=== PATIENT | male | born 1970 | race Two or more races ===

== ENCOUNTER 2020-02-10 22:16 | Inpatient (IN) | payer SELFPAY ==
[~2020-02-10] VITALS: Ht 165.1 cm; Wt 82.2 kg
--- NOTE | 2020-02-10 22:20 | NUR ---
ED Nurse Note: Pt was brought in by [facility] 29 from home for c/o SOB for last 8 hours. PT sp02 is 81% in RA. oxygen 2L/min given via n/c , sp02 went up to 96%.
[2020-02-10] MEDS ORDERED: Acetaminophen 500mg (ES) tab ORAL ONE (22:30)
--- NOTE | 2020-02-10 22:36 | Emergency Room Report ---
History of Present Illness General Chief Complaint: Dyspnea/Respdistress Source: Patient, EMS Present Illness HPI This a 49-year-old male with no past medical history. He presents with chief plaint of shortness of breath. He said he been sick for the last 2 days but shortness of breath occur about 8 hours ago. Worse with exertion. Worse with inspiration. Cough is nonproductive in nature. Said he has no energy. Denies any fever but has chills. Sick contact in his brother who has the same symptoms but not as bad. Unknown COVID status or exposure. Denies any medical problem. No diabetes, asthma, high blood pressure or cardiac history. Per EMS, he was only 81% on room air. He was also very tachycardic. They placed him on oxygen and brought him here. By the time he got here, he said he felt better with the oxygen. Allergies: Coded Allergies: No Known Allergies (Unverified , 02/10/20) COVID-19 Screening Contact w/high risk pt: No Recent Travel to affected area: No Experienced COVID-19 symptoms?: Yes COVID-19 symptoms experienced: Shortness of Breath Patient History Past Medical History: see triage record, old chart reviewed Past Surgical History: none Pertinent Family History: none Social History: Denies: smoking - Quit 4 years ago Immunizations: other Reviewed Nursing Documentation: PMH: Agreed; PSxH: Agreed Nursing Documentation-PMH Past Medical History: No Stated History Hx Cardiac Problems: No Hx Hypertension: No Hx Pacemaker: No Hx Asthma: No Hx COPD: No Hx Diabetes: No Hx Cancer: No Hx Gastrointestinal Problems: No Hx Dialysis: No History Of Psychiatric Problem: No Hx Neurological Problems: No Hx Cerebrovascular Accident: No Hx Seizures: No Review of Systems Constitutional: Reports: chills Eye: Denies: eye pain, blurred vision ENT: Denies: ear pain, nose congestion, throat swelling Respiratory: Reports: cough, shortness of breath Cardiovascular: Denies: chest pain, palpitations Gastrointestinal: Denies: abdominal pain, diarrhea, nausea, vomiting Musculoskeletal: Denies: back pain, joint pain Skin: Denies: rash Neurological: Denies: headache, numbness Endocrine: Denies: increased thirst, increased urine Hematologic/Lymphatic: Denies: easy bruising All Other Systems: negative except mentioned in HPI Physical Exam Vital Signs Date Time Temp Pulse Resp B/P (MAP) Pulse Ox O2 Delivery O2 Flow Rate FiO2 02/10/20 22:13 97.0 140 22 155/96 (115) 81 Room Air 02/10/20 22:19 15.0 Sp02 EP Interpretation: reviewed, abnormal General Appearance: well appearing, alert, moderate distress Head: normocephalic, atraumatic Eyes: bilateral eye PERRL, bilateral eye EOMI ENT: hearing grossly normal, normal pharynx Neck: full range of motion, supple, no meningismus Respiratory: chest non-tender, decreased breath sounds Cardiovascular #1: regular rate, rhythm, no murmur, tachycardia Gastrointestinal: normal bowel sounds, non tender, no mass, no organomegaly, no bruit, non-distended Musculoskeletal: back normal, normal range of motion, gait/station normal Psychiatric: mood/affect normal Procedures Critical Care Time Critical Care Time Critical care is mandated in this patient who presented with severe hypoxia secondary to suspected COVID pneumonia. Patient require my urgent intervention to attenuate the risks of respiratory collapse which may lead to cardiovascular collapse and . Critical care time is 35 minutes excluding any reportable procedure. Critical care time included evaluation, multiple reevaluation, looking at old charts, interpreting laboratory and diagnostic data, discussing case with patient and family and consultants, and charting. Medical Decision Making Diagnostic Impression: Primary Impression: Suspected 2019 novel coronavirus infection Additional Impressions: Pneumonia Qualified Codes: J18.9 - Pneumonia, unspecified organism Respiratory failure with hypoxia Qualified Codes: J96.01 - Acute respiratory failure with hypoxia New onset type 2 diabetes mellitus ER Course This a 49-year-old male presents with shortness of breath and had severe hypoxia at home. Much improved here in the ER and after oxygenation. Right now he is 98% on 2 L nasal cannula. Heart rate also greatly improved to 93 bpm. Based on the fact that when he admits of a pandemic he has sick contact, is most likely COVID respiratory infection. Patient received fluid here, Combivent MDI, antibiotics, and hydroxychloroquine per protocol. EKG showed no evidence of prolonged QT interval. Because of his hypoxia and mildly elevated d -dimer, I gave him a dose of Lovenox here also. This is to cover for any micro emboli from COVID infection. It appeared that he has new onset diabetes since he has 4+ glucose in the urine and blood glucose is 253. Based on his BMI of 30 , he fits the definition of obesity. Because of his hypoxia, will admit for monitoring and medication. I contacted Dr. Vargas for admission. EKG Diagnostic Results Rate: tachycardiac Rhythm: NSR ST Segments: no acute changes Rhythm Strip Diag. Results EP Interpretation: yes Rate: 94 Rhythm: NSR, no PVC's, no ectopy Chest X-Ray Diagnostic Results Chest X-Ray Diagnostic Results : Chest X-Ray Ordered: Yes # of Views/Limited/Complete: 1 View Indication: Shortness of Breath EP Interpretation: Yes Interpretation: no effusion, no pneumothorax, other - Slight right lower lobe interstitial infiltrate Impression: Other - RLL infiltrate Electronically Signed by: Ramon Nunez MD Last Vital Signs Date Time Temp Pulse Resp B/P (MAP) Pulse Ox O2 Delivery O2 Flow Rate FiO2 02/10/20 22:19 90 Simple Mask 15.0 02/10/20 22:13 97.0 140 22 155/96 (115) Status: improved Disposition: ADMITTED INPATIENT Condition: Serious Ramon Nunez MD February 10, 2020 22:36
[2020-02-10 22:37] VITALS: BP 164/86
--- NOTE | 2020-02-10 22:41 | NUR ---
ED Nurse Note: pt is connected to cardiac monitor technician. pt sp02 is 96 with oxygen on 2L/min via n/c. blood sample collected and sent to lab.
--- NOTE | 2020-02-10 22:44 | NUR ---
ED Nurse Note: x ray being performed at bedside.
[2020-02-10 22:50] LABS: BASOPHILS % (AUTO) 0.6 % (0.0-2.0); EOSINOPHILS % (AUTO) 0.3 % (0.0-3.0); HEMATOCRIT 54.3 % (42.0-52.0); HEMOGLOBIN 17.8 G/DL (14.2-18.0); LYMPHOCYTES % (AUTO) 15.9 % (20.0-45.0); MEAN CORPUSCULAR VOLUME 90 FL (80-99); MONOCYTES % (AUTO) 10.8 % (1.0-10.0); NEUTROPHILS % (AUTO) 72.4 % (45.0-75.0); PLATELET COUNT 150 K/UL (150-450); RED BLOOD COUNT 6.05 M/UL (4.70-6.10); RED CELL DISTRIBUTION WIDTH 11.6 % (11.6-14.8); WHITE BLOOD COUNT 5.4 K/UL (4.8-10.8)
--- NOTE | 2020-02-10 22:55 | Diagnostic Imaging Report ---
EXAM: XR Chest, 1 View CLINICAL HISTORY: COUGH TECHNIQUE: Frontal view of the chest. COMPARISON: No relevant prior studies available. FINDINGS: Lungs: Slight right lung base opacity. Pleural space: No acute findings Heart: No cardiomegaly. Bones/joints: No acute findings. IMPRESSION: Slight right lung base opacity, correlate with aspiration/atelectasis/infectious process.
[2020-02-10 23:05] LABS: INR 0.9 (0.9-1.1)
[2020-02-10 23:07] LABS: ANION GAP 10 mmol/L (5-15); BLOOD UREA NITROGEN 13 mg/dL (7-18); CALCIUM 9.1 MG/DL (8.5-10.1); CARBON DIOXIDE 29 MMOL/L (21-32); CHLORIDE 94 MMOL/L (98-107); POTASSIUM 4.6 MMOL/L (3.5-5.1); SODIUM 133 MMOL/L (136-145)
[2020-02-10 23:15] LABS: APPEARANCE,URINE SLIGHTLY CLOUDY; BILIRUBIN, URINE 1+ (NEGATIVE); GLUCOSE, URINE (UA) 4+ (NEGATIVE); KETONES,URINE 4+ (NEGATIVE); LEUKOCYTE ESTERASE ,URINE 1+ (NEGATIVE); NITRITE,URINE NEGATIVE (NEGATIVE); PH,URINE 6 (4.5-8.0); PROTEIN,URINE 3+ (NEGATIVE); UROBILINOGEN,URINE 4 MG/DL (0.0-1.0)
[2020-02-10] MEDS ORDERED: Enoxaparin 80mg Inj SUBQ ONE (23:15)
[2020-02-10] MEDS ORDERED: cefTRIAXone 1 GM in NS 55 ML IVPB ONE (23:15)
[2020-02-10] MEDS ORDERED: Azithromycin 500 MG in NS 275 ML IV ONE (23:15)
[2020-02-10 23:22] LABS: COLOR,URINE YELLOW
[2020-02-10 23:23] LABS: ALANINE AMINOTRANSFERASE 79 U/L (12-78); ALBUMIN 3.3 G/DL (3.4-5.0); ALBUMIN/GLOBULIN RATIO 0.6 (1.0-2.7); ALKALINE PHOSPHATASE 88 U/L (46-116); ASPARTATE AMINO TRANSFERASE 60 U/L (15-37); BILIRUBIN,TOTAL 1.3 MG/DL (0.2-1.0); FERRITIN 857 NG/ML (8-388)
[2020-02-10 23:25] LABS: BILIRUBIN,DIRECT 0.4 MG/DL (0.0-0.3)
[2020-02-11] VITALS (10 sets, daily range): BP systolic 126–147; BP diastolic 60–81
[2020-02-11] MEDS ORDERED: Albuterol/Ipratropium 3ml neb HHN PRN (00:15)
[2020-02-11] MEDS ORDERED: Miralax 17gm pkt ORAL PRN (00:15)
[2020-02-11] MEDS ORDERED: Morphine Sulfate 2mg/ml Inj(IV/IM USE ONLY) IVP PRN (00:15)
[2020-02-11] MEDS ORDERED: LORazepam Inj 2mg/ml 1ml IV PRN (00:15)
[2020-02-11] MEDS ORDERED: cefTRIAXone 2 GM in NS 55 ML IVPB ONE (00:30)
[2020-02-11] MEDS ORDERED: propofoL 1,000mg/100ml 100 ML IV SCH (02:00)
--- NOTE | 2020-02-11 03:00 | NUR ---
ED Nurse Note: pt requested to hold on to hopson. cupola charger aware.
--- NOTE | 2020-02-11 04:00 | NUR ---
ED Nurse Note: AM LAB BLOOD DRAWN AND SENT TO LAB
--- NOTE | 2020-02-11 07:13 | NUR ---
ED Nurse Note: RECEIVED REPORT FROM RONY RICHARDSON RN, PT RESTING ON BED WITH NO DISTRESS. CALM AND COOPERATIVE. PT IS EATING HIS BREAKFAST. PT AWARE THAT WERE STILL WAITING FOR A BED IN MED SURG UNIT.
--- NOTE | 2020-02-11 07:15 | NUR ---
ED Nurse Note: gave report to Leslie DEVLIN
[2020-02-11] MEDS: Enoxaparin 40mg Inj SUBQ SCH (08:49)
--- NOTE | 2020-02-11 08:55 | NUR ---
ED Nurse Note: Dr Vargas at the bed side. Meds carried out as ordered. Pt states he feels a lot better and less short of breath since last night. AAO x4 and speaks in clear sentences. Bed side commode provided at the bed side.
--- NOTE | 2020-02-11 09:02 | NUR ---
Neeru martinez in EDM - 02/11/20 at 0902 by ABDON ED Note: Dr Vargas at [facility].
[2020-02-11] MEDS ORDERED: Lidocaine 1% MPF 10mg/ml 5ml INJ ONE (10:15)
--- NOTE | 2020-02-11 10:16 | Consultation ---
Rakel Jerry ELECTROSTATIC PAINTER 02/11/20 1016: History of Present Illness General Date patient seen: February 11, 2020 Time patient seen: 08:45 Chief Complaint: Dyspnea/Respdistress Referring physician: dr Vargas Reason for Consultation: PNA, possible COVID infction Present Illness HPI 49 years old male with no stated PMH, presented with complaint of shortness of breath. Patient reported being sick for the last two days with nonproductive cough , however shortness of breath started about 8 to 10 hours prior to presentation to ED. Shortness of breath worse with inspiration. Patient denied fevers but reported chills. Patient denied wheezing and hemoptysis. No chest pain. Patient reported that his brother had similar symptoms , but not as bad. Upon presentation patient was hypoxic 81% on room air, tachycardic with heart rate 140, respiratory rate 22 ,no fever. Patient was placed on supplemental oxygen and pulse oximetry improved. Laboratory work-up revealed no leukocytosis ,stable hemoglobin, hematocrit, evidence of lymphopenia with lymphocyte percentage 15.9. ,ESR 10. Glucose 253. Stable renal parameters. Elevated ferritin 857. LDH 264. CRP 8.9. Elevated LFT: AST 60, ALT 79, total bilirubin 1.3, direct bilirubin 0.4. Troponin negative, pro BNP 88. ECG with ST, no acute ischemic changes, Urinalysis revealed +3 protein ,+4 glucose, +4 ketones, pyuria. Coarse granular casts . Hemoglobin A1c above 16. Chest x-ray demonstrated right lung base opacity , possible pneumonia versus atelectasis. In emergency department patient received empiric antibiotic with ceftriaxone and azithromycin , received 1 dose of Plaquenil. Patient was swabbed for COVID-19. Patient will be admitted to isolation room for further management. Pulmonary consult was requested to assist in management of this patient. Allergies: Coded Allergies: No Known Allergies (Unverified , 02/10/20) Patient History History Provided By: Patient Healthcare decision maker Resuscitation status full code Advanced Directive on File Review of Systems Constitutional: Reports: chills, weakness Eye: Reports: no symptoms ENT: Reports: no symptoms Respiratory: Reports: see HPI Cardiovascular: Reports: no symptoms Genitourinary: Reports: no symptoms Musculoskeletal: Reports: no symptoms Psychiatric: Reports: no symptoms Neurological: Reports: no symptoms Endocrine: Reports: see HPI Hematologic/Lymphatic: Reports: no symptoms Physical Exam General Appearance: no apparent distress, alert Lines, tubes and drains: peripheral HEENT: normocephalic, atraumatic, anicteric, mucous membranes moist, PERRL Neck: non-tender, supple, limited range of motion Respiratory/Chest: chest wall non-tender, no respiratory distress, no accessory muscle use, decreased breath sounds, other - on O2 via NC Cardiovascular/Chest: normal peripheral pulses, normal rate, regular rhythm Abdomen: normal bowel sounds, non tender, soft Extremities: normal range of motion, non-tender, no calf tenderness, normal capillary refill Skin Exam: normal pigmentation, warm/dry Neurologic: meringuer II-XII grossly normal, no motor/sensory deficits, alert, oriented x 3, responsive Musculoskeletal: normal muscle bulk Last 24 Hour Vital Signs Date Time Temp Pulse Resp B/P (MAP) Pulse Ox O2 Delivery O2 Flow Rate FiO2 02/11/20 08:04 73 17 135/73 98 Nasal Cannula 2.0 02/11/20 06:00 99.9 81 20 131/81 98 Nasal Cannula 2.0 02/11/20 04:00 98.8 79 20 126/73 98 Nasal Cannula 2.0 02/10/20 23:21 99.2 02/10/20 22:37 99.6 112 25 164/86 96 Nasal Cannula 2.0 02/10/20 22:20 112 22 Nasal Cannula 2.0 02/10/20 22:19 90 Simple Mask 15.0 02/10/20 22:13 99.7 140 22 155/96 (115) 81 Room Air Intake and Output 02/10/20 02/11/20 19:00 07:00 Intake Total 1550 ml Balance 1550 ml Intake Oral 50 ml IV Total 1500 ml # Voids 1 Laboratory Tests Test 02/10/20 22:30 02/10/20 22:35 Urine Color Yellow Urine Appearance Slightly cloudy Urine pH 6 (4.5-8.0) Urine Specific [place] 1.025 (1.005-1.035) Urine Protein 3+ (NEGATIVE) H Urine Glucose (UA) 4+ (NEGATIVE) H Urine Ketones 4+ (NEGATIVE) H Urine Blood 1+ (NEGATIVE) H Urine Nitrite Negative (NEGATIVE) Urine Bilirubin 1+ (NEGATIVE) H Urine Ictotest Positive (NEGATIVE) Urine Urobilinogen 4 MG/DL (0.0-1.0) H Urine Leukocyte Esterase 1+ (NEGATIVE) H Urine RBC 0-2 /HPF (0 - 0) H Urine WBC 5-10 /HPF (0 - 0) H Urine Squamous Epithelial Cells None /LPF (NONE/OCC) Urine Bacteria Few /HPF (NONE) Urine Coarse Granular Casts 2-4 /LPF (NONE) H White Blood Count 5.4 K/UL (4.8-10.8) Red Blood Count 6.05 M/UL (4.70-6.10) Hemoglobin 17.8 G/DL (14.2-18.0) Hematocrit 54.3 % (42.0-52.0) H Mean Corpuscular Volume 90 FL (80-99) Mean Corpuscular Hemoglobin 29.5 PG (27.0-31.0) Mean Corpuscular Hemoglobin Concent 32.9 G/DL (32.0-36.0) Red Cell Distribution Width 11.6 % (11.6-14.8) Platelet Count 150 K/UL (150-450) Mean Platelet Volume 10.9 FL (6.5-10.1) H Neutrophils (%) (Auto) 72.4 % (45.0-75.0) Lymphocytes (%) (Auto) 15.9 % (20.0-45.0) L Monocytes (%) (Auto) 10.8 % (1.0-10.0) H Eosinophils (%) (Auto) 0.3 % (0.0-3.0) Basophils (%) (Auto) 0.6 % (0.0-2.0) Erythrocyte Sedimentation Rate 10 MM/HR (0-15) Prothrombin Time 10.0 SEC (9.30-11.50) Prothromb Time International Ratio 0.9 (0.9-1.1) Activated Partial Thromboplast Time 28 SEC (23-33) D-Dimer 0.82 mg/L FEU (0.00-0.49) H Sodium Level 133 MMOL/L (136-145) L Potassium Level 4.6 MMOL/L (3.5-5.1) Chloride Level 94 MMOL/L (98-107) L Carbon Dioxide Level 29 MMOL/L (21-32) Anion Gap 10 mmol/L (5-15) Blood Urea Nitrogen 13 mg/dL (7-18) Creatinine 1.0 MG/DL (0.55-1.30) Estimat Glomerular Filtration Rate > 60 mL/min (>60) Glucose Level 253 MG/DL (74-106) H Hemoglobin A1c > 16.0 % (4.3-6.0) H Lactic Acid Level 1.80 mmol/L (0.4-2.0) Calcium Level 9.1 MG/DL (8.5-10.1) Ferritin 857 NG/ML (8-388) H Total Bilirubin 1.3 MG/DL (0.2-1.0) H Direct Bilirubin 0.4 MG/DL (0.0-0.3) H Aspartate Amino Transf (AST/SGOT) 60 U/L (15-37) H Alanine Aminotransferase (ALT/SGPT) 79 U/L (12-78) H Alkaline Phosphatase 88 U/L (46-116) Lactate Dehydrogenase 264 U/L (81-234) H Troponin I 0.000 ng/mL (0.000-0.056) C-Reactive Protein, Quantitative 8.9 mg/dL (0.00-0.90) H Pro-B-Type Natriuretic Peptide 88 pg/mL (0-125) Total Protein 8.6 G/DL (6.4-8.2) H Albumin 3.3 G/DL (3.4-5.0) L Globulin 5.3 g/dL Albumin/Globulin Ratio 0.6 (1.0-2.7) L Microbiology Date/Time Source Procedure Growth Status 02/10/20 22:35 Nasal Nares - Final Complete 02/10/20 22:35 Nasal Nares - Final Complete Height (Feet): 5 Height (Inches): 5.00 Weight (Pounds): 180 Medications Current Medications Medications (Trade) Dose Ordered Sig/Monster Route PRN Reason Start Time Stop Time Status Last Admin Dose Admin Acetaminophen (Tylenol) 650 mg Q4H PRN ORAL TEMP>100.5 02/10/20 23:45 Acetaminophen (Tylenol) 650 mg Q4H PRN RECTAL Mild Pain (Pain Scale 1-3) 02/11/20 00:15 03/12/20 00:14 Albuterol/ Ipratropium (Albuterol/ Ipratropium) 3 ml Q4HRT PRN HHN Shortness of Breath 02/11/20 00:15 02/16/20 00:14 Albuterol/ Ipratropium (Combivent Respimat) 2 puff Q4HR INH 02/11/20 01:00 03/12/20 00:59 02/11/20 08:49 Azithromycin 500 mg/Sodium Chloride 275 ml @ 275 mls/hr ONCE IV 02/11/20 21:00 02/11/20 23:00 Ceftriaxone Sodium 2 gm/ Sodium Chloride 55 ml @ 110 mls/hr ONCE ONCE IVPB 02/11/20 00:30 02/11/20 00:59 UNV Dextrose (Dextrose 50%) 25 ml Q30M PRN IV Hypoglycemia 02/11/20 00:15 05/11/20 00:14 Dextrose (Dextrose 50%) 50 ml Q30M PRN IV Hypoglycemia 02/11/20 00:15 05/11/20 00:14 Enoxaparin Sodium (Lovenox) 40 mg Q24H SUBQ 02/11/20 09:00 05/11/20 08:59 02/11/20 08:49 Lorazepam (Ativan 2mg/ml 1ml) 0.5 mg Q4H PRN IV For Anxiety 02/11/20 00:15 02/18/20 00:14 Morphine Sulfate (Morphine Sulfate) 2 mg EVERY 6 HOURS PRN IVP Moderate Pain (Pain Scale 4-6) 02/11/20 00:15 02/18/20 00:14 Ondansetron HCl (Zofran) 4 mg Q6H PRN IVP Nausea & Vomiting 02/11/20 00:15 03/12/20 00:14 Pantoprazole (Protonix) 40 mg DAILY ORAL 02/11/20 09:00 03/12/20 08:59 02/11/20 08:49 Polyethylene Glycol (Miralax) 17 gm HSPRN PRN ORAL Constipation 02/11/20 00:15 03/12/20 00:14 Assessment/Plan Assessment/Plan: ASSESSMENT Acute hypoxemic respiratory failure Suspected COVID-19 infection Probably PNA New onset of DM with hyperglycemia Sinus tachycardia - resolved Transaminitis PLAN OF CARE admit to isolation room empiric abx , continue Rocephin and Azithromycin ( Doxy on back order, unable to order) ID consult pending, if decided to add Plaquenil, clsoely monitor QT interval we will hold on Plaquenil for now O2 titrate to keep sat above 90% MDI with Albuterol prn ( no HHN while PUI for CoVID) fup with CXR in am DVT prophylaxis trend ferritin, LICENSING REGISTRATION EXAMINER, LDH in few days check IL-6 BS management: BS monitor AC and HS will add long acting Levemir and resistant SSI HgA1c>16, diabetic diet endo eval as per attending discretion ( may need pre meal SA insulin as well) diabetic teaching ( as new onset of DM) check TSH in am trend LFT GI prophayxlis supportive care case discussed and evaluated by supervising physician Willie Upton MD 02/11/20 1245: History of Present Illness General Chief Complaint: Dyspnea/Respdistress Present Illness Allergies: Coded Allergies: No Known Allergies (Unverified , 02/10/20) Assessment/Plan Assessment/Plan: Patient seen and examined with ELECTROSTATIC PAINTER, agree with above A&P as it reflects our joint deliberations. 49 M No PMH p/w SOB and hypoxemia noted to have a RLL infiltrate concerning for CAP vs COVID PNA Supportive care, O2, self proning, empiric CAP/treatment, HFA's, F/U covid, DVT Px Rakel Jerry NP February 11, 2020 10:16 Willie Upton MD February 11, 2020 12:45
[2020-02-11] MEDS ORDERED: Levemir Flexpen SUBQ SCH (11:00)
[2020-02-11] MEDS: NovoLOG Insulin Flexpen SUBQ SCH ×3 (11:49→22:00)
--- NOTE | 2020-02-11 11:55 | NUR ---
ED Nurse Note: Lunch provided to pt.
--- NOTE | 2020-02-11 14:00 | NUR ---
ED Nurse Note: Pt resting on gurney and calm and cooperative. Noted pt consumed lunch. Respirations are even and unlabored. Will continue to closely monitor pt.
--- NOTE | 2020-02-11 18:29 | Consultation ---
DATE OF CONSULTATION: 02/11/2020 CARDIOLOGY CONSULTATION CONSULTING PHYSICIAN: Devyn Mina MD. REFERRING PHYSICIAN: Myla Vargas MD. REASON FOR CONSULTATION: Management of tachycardia. HISTORY OF PRESENT ILLNESS: Patient is a very unfortunate 49-year-old gentleman, who presented to the hospital with 2 days history of progressively worsening shortness of breath, pleuritic chest pain, nonproductive cough, and oxygen desaturation. According to the EMS, the patient's O2 saturation was 81% on room air. Apparently, the patient's brother also had the same symptoms. It is not clear whether he was positive for COVID-19 infection. At the time of arrival to the hospital, the patient was placed on oxygen. He was very tachycardic. Initial vital signs showed blood pressure of 155/96 mmHg and heart rate of 140. The patient was afebrile. PAST MEDICAL HISTORY: None. PAST SURGICAL HISTORY: None. FAMILY HISTORY: No premature coronary artery disease in first-degree relatives. SOCIAL HISTORY: History of tobacco use, quit about 40 years ago. No drinking or drugs. REVIEW OF SYSTEMS: A 12-system review done essentially negative except what was mentioned in the history of present illness. MEDICATIONS: List of medications, no medication. PHYSICAL EXAMINATION: VITAL SIGNS: Blood pressure was 155/96 mmHg, heart rate of 140, respirations of 22, temperature 97.0 degrees Fahrenheit, O2 saturation 81% on room air. GENERAL: Patient is a very unfortunate 49-year-old gentleman, in moderate distress. HEENT: Atraumatic and normocephalic. Anicteric. Pupils are equal, round, and reactive to light and accommodation. Extraocular muscles intact. NECK: JVP less than 5 cm. No carotid bruit. Carotid upstrokes 2+ bilaterally. CARDIOVASCULAR: Normal S1, S2. Tachycardic. No murmurs, gallops, or rubs. LUNGS: Bibasilar crackles. ABDOMEN: Soft, nontender, and nondistended. No hepatosplenomegaly. Positive bowel sounds. EXTREMITIES: No evidence of edema, clubbing, or cyanosis. Chest x-ray shows cardiomegaly with increased interstitial markings consistent with interstitial edema. LABORATORY FINDINGS: WBC 5.4, hemoglobin of 17.8, hematocrit of 54.3, platelet count 150. There is presence of lymphopenia. Chemistry, sodium 133, potassium is 4.6, chloride 94, bicarbonate 29, BUN of 13, creatinine 1.0, glucose 253. AST, ALT 16 and 79 respectively. Troponin I level 0. C-reactive protein 8.9. D-dimer is 0.8. INR is 0.9. PTT of 28. ASSESSMENT AND PLAN: Patient is a very unfortunate 49-year-old gentleman, seen in Cardiology consultation. 1. Sinus tachycardia. This is most likely secondary to hypoxemia. I do not wish to use AV dwayne agent at this point. I agree with aggressive treatment of suspected COVID-19 infection. Other conservative measures including providing normal saline 75 mL per hour. 2. Hyperglycemia with no history of diabetes mellitus. 3. Hyponatremia, most likely due to needs to be corrected for elevated blood sugar levels. 4. Elevated D-dimer in this patient could be secondary to microvascular thrombus formation ? Lovenox treatment. 5. Acute respiratory failure. I would consider arterial blood gas and Pulmonary consultation and followup. I would like to thank, Dr. Vargas, for the courtesy of this consultation. Devyn Mina M.D. DR: JO JOB#: [id number] CC:
--- NOTE | 2020-02-11 19:07 | NUR ---
HAND-OFF: Report given to Justin Anand RN.
--- NOTE | 2020-02-11 19:30 | NUR ---
ED Nurse Note: received patient from mallory nguyen. upon visual inspection, patient resting in bed with no acute distress. ao4. Attached to monitor; vss. Aware of pending admission. will continue to monitor.
--- NOTE | 2020-02-11 20:20 | NUR ---
TRANSFER TO FLOOR: Patient transferred to [place] [id number] as ordered, per pernell jennings. Report given to karlie tejada. endorsed patient condition. Patient transported to [facility] belongings and admission packet sent with patient. Droplet precautions observed. will continue to monitor.
--- NOTE | 2020-02-11 20:30 | NUR ---
NURSE NOTES: Pt. received from Justin Anand RN. Pt. AAOx4, on NC 2L, breathing even and unlabored, no complaints of pain. IV access right AC 20g, intact and patent, saline locked. VS stable, belongings checked and list signed; pt. refused to send hopson away for safe keeping, in pt. possession. Pt. oriented to room and unit, call light use, pt. verbalized understanding. Will follow up with primary MD for additional admission orders. Bed is low and locked, side rails x2 up, and call light in reach. Will continue with plan of care.
[2020-02-11] MEDS ORDERED: Azithromycin 500 MG in NS 275 ML IV SCH (21:00)
[2020-02-11] MEDS ORDERED: cefTRIAXone 2 GM in NS 55 ML IVPB SCH (21:00)
--- NOTE | 2020-02-11 21:00 | NUR ---
NURSE NOTES: Dr. Vargas aware pt. now present on med-surg unit, no new admission orders at this time. Will continue to monitor.
--- NOTE | 2020-02-11 21:30 | History and Physical Report ---
DATE OF ADMISSION: 02/11/2020 SOURCE OF INFORMATION: Patient and EMR. HISTORY OF PRESENT ILLNESS: The patient is a 49-year-old male presented with shortness of breath for the last 3 to 5 days. The patient denies any nausea or vomiting. Denies any fever or chills. REVIEW OF SYSTEMS: All 12 elements of review of systems reviewed. Pertinent positive and negative as above. ALLERGIES: NKDA. SOCIAL HISTORY: The patient denies history of illicit drug abuse, smoking, or alcohol abuse. The patient is single. PAST MEDICAL AND SURGICAL HISTORY: Appendectomy and diabetes. MEDICATIONS: Current hospital medications including ceftriaxone and azithromycin. PHYSICAL EXAMINATION: VITAL SIGNS: Blood pressure 155/96, temperature 99.7, respiratory rate 18, pulse rate 140. HEAD AND NECK: Atraumatic and normocephalic. CHEST: Clear to auscultation. HEART: S1, S2. Regular rate and rhythm. ABDOMEN: Soft. No organomegaly. MUSCULOSKELETAL: No gross focal deficits. NEUROLOGICAL: Patient is awake, alert and oriented x3. LABORATORY DATA: Lab dated February 09 shows hemoglobin of 17.8, sodium 133, BUN 13, AST of 60. Hemoglobin A1c of more than 16. Blood sugar 253. Urinalysis positive for the 10 wbc's and 1+ blood. D-dimer is 0.8. IMAGING: Chest x-ray dated February 09 shows right lung opacity. ASSESSMENT AND PLAN: 1. Community-acquired pneumonia, possibilities of COVID-19 cannot be excluded. 2. Diabetes type 2, uncontrolled. 3. Abnormal LFT. 4. Hyponatremia. 5. UTI. 6. GI and DVT prophylaxis. PLAN OF CARE: Started empiric antibiotic treatment. We will check the hepatitis panel. We will resume the breathing treatments and the empiric antibiotic treatment pending cultures. Time of this dictation does not reflect the actual time of encounter. Myla Vargas M.D. DR: Ryann JOB#: [id number] CC:
[2020-02-12] VITALS: BP 140/79
[2020-02-12 04:00] VITALS: BP 145/79
[2020-02-12] MEDS: NovoLOG Insulin Flexpen SUBQ SCH ×4 (06:30→22:05)
[2020-02-12 07:04] LABS: ALANINE AMINOTRANSFERASE 60 U/L (12-78); ALBUMIN 2.5 G/DL (3.4-5.0); ALBUMIN/GLOBULIN RATIO 0.6 (1.0-2.7); ALKALINE PHOSPHATASE 71 U/L (46-116); ANION GAP 7 mmol/L (5-15); ASPARTATE AMINO TRANSFERASE 38 U/L (15-37); BILIRUBIN,TOTAL 0.8 MG/DL (0.2-1.0); BLOOD UREA NITROGEN 5 mg/dL (7-18); CALCIUM 8.2 MG/DL (8.5-10.1); CARBON DIOXIDE 29 MMOL/L (21-32); CHLORIDE 100 MMOL/L (98-107); CREATININE 0.7 MG/DL (0.55-1.30); POTASSIUM 3.8 MMOL/L (3.5-5.1); SODIUM 136 MMOL/L (136-145)
[2020-02-12 07:16] LABS: HEMATOCRIT 43.6 % (42.0-52.0); MEAN CORPUSCULAR VOLUME 84 FL (80-99); PLATELET COUNT 165 K/UL (150-450); RED BLOOD COUNT 5.19 M/UL (4.70-6.10); RED CELL DISTRIBUTION WIDTH 9.9 % (11.6-14.8); WHITE BLOOD COUNT 6.7 K/UL (4.8-10.8)
--- NOTE | 2020-02-12 07:50 | NUR ---
HAND-OFF: Report given to QUITA Bustamante.
[2020-02-12 08:00] VITALS: BP 149/79
--- NOTE | 2020-02-12 08:54 | Pulmonology Progress Note ---
Rakel Jerry CAGER OPERATOR 02/12/20 0854: Subjective Allergies: Coded Allergies: No Known Allergies (Unverified , 02/10/20) Subjective low grade fevers resolved on o2 via NC, no signs of resp distress COVID result pending, in isolation ST resolved , likely was due to fever BS stable with insulin therapy Objective Last 24 Hour Vital Signs Date Time Temp Pulse Resp B/P (MAP) Pulse Ox O2 Delivery O2 Flow Rate FiO2 02/12/20 08:40 Nasal Cannula 2.0 02/12/20 08:00 97.5 90 21 149/79 (102) 95 02/12/20 04:00 97.5 90 21 145/79 (101) 95 02/12/20 00:53 Nasal Cannula 2.0 02/12/20 00:00 97.9 87 20 140/79 (99) 97 02/11/20 20:30 97.8 89 18 147/78 (101) 92 02/11/20 20:27 98.7 83 15 134/75 96 Nasal Cannula 2.0 02/11/20 20:00 98.7 83 15 134/75 96 Nasal Cannula 2.0 02/11/20 17:20 98.7 83 15 142/75 96 Nasal Cannula 2.0 02/11/20 15:15 79 16 139/76 99 Nasal Cannula 2.0 02/11/20 13:27 99.0 86 17 135/60 96 Nasal Cannula 2.0 02/11/20 12:05 74 15 128/80 99 Nasal Cannula 2.0 02/11/20 10:10 99.3 85 16 128/70 99 Nasal Cannula 2.0 Intake and Output 02/11/20 02/12/20 19:00 07:00 Intake Total 360 ml Balance 360 ml Other 360 ml # Voids 2 Objective General Appearance: no apparent distress, alert Lines, tubes and drains: peripheral HEENT: normocephalic, atraumatic, anicteric, mucous membranes moist, PERRL Neck: non-tender, supple, limited range of motion Respiratory/Chest: chest wall non-tender, no respiratory distress, no accessory muscle use, decreased breath sounds, on O2 via NC Cardiovascular/Chest: normal peripheral pulses, normal rate, regular rhythm Abdomen: normal bowel sounds, non tender, soft Extremities: normal range of motion, non-tender, no calf tenderness, normal capillary refill Skin Exam: normal pigmentation, warm/dry Neurologic: conference assistant II-XII grossly normal, no motor/sensory deficits, alert, oriented x 3, responsive Musculoskeletal: normal muscle bulk Microbiology Date/Time Source Procedure Growth Status 02/10/20 22:35 Nasal Nares - Final Complete 02/10/20 22:35 Nasal Nares - Final Complete Laboratory Tests 02/11/20 14:20: Hepatitis A IgM Antibody Negative, Hepatitis B Surface Antigen Negative, Hepatitis B Core IgM Antibody Negative, Hepatitis C Antibody <0.1 02/12/20 06:00: White Blood Count 6.7, Red Blood Count 5.19, Hemoglobin 16.0, Hematocrit 43.6, Mean Corpuscular Volume 84, Mean Corpuscular Hemoglobin 30.7, Mean Corpuscular Hemoglobin Concent 36.6H, Red Cell Distribution Width 9.9L, Platelet Count 165, Mean Platelet Volume 9.2, Neutrophils (%) (Auto) , Lymphocytes (%) (Auto) , Monocytes (%) (Auto) , Eosinophils (%) (Auto) , Basophils (%) (Auto) , Neutrophils % (Manual) [Pending], Lymphocytes % (Manual) [Pending], Platelet Estimate [Pending], Platelet Morphology [Pending], Sodium Level 136, Potassium Level 3.8, Chloride Level 100, Carbon Dioxide Level 29, Anion Gap 7, Blood Urea Nitrogen 5L, Creatinine 0.7, Estimat Glomerular Filtration Rate > 60, Glucose Level 144#H, Hemoglobin A1c 9.2H, Calcium Level 8.2L, Total Bilirubin 0.8, Aspartate Amino Transf (AST/SGOT) 38H, Alanine Aminotransferase (ALT/SGPT) 60, Alkaline Phosphatase 71, Total Protein 6.9, Albumin 2.5L, Globulin 4.4, Albumin/ Globulin Ratio 0.6L, Interleukin 6 (IL-6) [Pending], Thyroid Stimulating Hormone (TSH) 1.235 Current Medications Medications (Trade) Dose Ordered Sig/Monster Route PRN Reason Start Time Stop Time Status Last Admin Dose Admin Acetaminophen (Tylenol) 650 mg Q4H PRN RECTAL Mild Pain (Pain Scale 1-3) 02/11/20 00:15 03/12/20 00:14 Albuterol/ Ipratropium (Combivent Respimat) 1 puff Q4H PRN INH Shortness of Breath 02/12/20 06:15 05/11/20 09:59 Azithromycin 500 mg/Sodium Chloride 275 ml @ 275 mls/hr Q24H IV 02/12/20 21:00 02/17/20 20:59 Ceftriaxone Sodium 1 gm/ Dextrose 55 ml @ 110 mls/hr Q24H IVPB 02/12/20 22:00 02/19/20 21:59 Dextrose (Dextrose 50%) 25 ml Q30M PRN IV Hypoglycemia 02/11/20 00:15 05/11/20 00:14 Dextrose (Dextrose 50%) 50 ml Q30M PRN IV Hypoglycemia 02/11/20 00:15 05/11/20 00:14 Enoxaparin Sodium (Lovenox) 40 mg Q24H SUBQ 02/11/20 09:00 05/11/20 08:59 02/11/20 08:49 Insulin Aspart (NovoLOG) BEFORE MEALS AND HS SUBQ 02/11/20 11:30 05/11/20 11:29 02/11/20 17:34 Insulin Detemir (Levemir) 20 units DAILY SUBQ 02/12/20 09:00 05/11/20 10:59 Lorazepam (Ativan 2mg/ml 1ml) 0.5 mg Q4H PRN IV For Anxiety 02/11/20 00:15 02/18/20 00:14 Morphine Sulfate (Morphine Sulfate) 2 mg EVERY 6 HOURS PRN IVP Moderate Pain (Pain Scale 4-6) 02/11/20 00:15 02/18/20 00:14 Ondansetron HCl (Zofran) 4 mg Q6H PRN IVP Nausea & Vomiting 02/11/20 00:15 03/12/20 00:14 Pantoprazole (Protonix) 40 mg DAILY ORAL 02/11/20 09:00 03/12/20 08:59 02/11/20 08:49 Polyethylene Glycol (Miralax) 17 gm HSPRN PRN ORAL Constipation 02/11/20 00:15 03/12/20 00:14 Assessment/Plan Assessment/Plan ASSESSMENT Acute hypoxemic respiratory failure Suspected COVID-19 infection CAR vs CoVID PNA New onset of DM with hyperglycemia Sinus tachycardia - resolved Transaminitis PLAN OF CARE MS floor isolation room empiric abx , continue Rocephin and Azithromycin ( Doxy on back order, unable to order) ID consult pending, if decided to add Plaquenil, closely monitor QT interval we will hold on Plaquenil for now O2 titrate to keep sat above 90% MDI with Albuterol prn ( no HHN while PUI for CoVID) fup with CXR in am self prone position as tolerating DVT prophylaxis trend ferritin, CRP, LDH in few days check [id number] BS management: BS monitor : AC and HS on long acting Levemir and resistant SSI HgA1c>16,repeated 9.2 diabetic diet endo eval as per attending discretion diabetic teaching ( as new onset of DM) check TSH WNL trend LFT-trendgin down hep panel NGT GI prophayxlis supportive care case discussed and evaluated by supervising physician Willie Upton MD 02/12/20 1731: Subjective Allergies: Coded Allergies: No Known Allergies (Unverified , 02/10/20) Assessment/Plan Assessment/Plan Patient seen and examined with CAGER OPERATOR. Agree with above A&P as it reflects our joint deliberations. COVID still pending, on CAP therapy. AFVSS with stable O2 needs. Cards recs noted. D-dimer only minimally elevated, can continue PPx dose of LMWH for now, will F/U Dupex and TTE. Rakel Jerry NP February 12, 2020 08:54 Willie Upton MD February 12, 2020 17:31
[2020-02-12] MEDS: Enoxaparin 40mg Inj SUBQ SCH (09:14)
[2020-02-12] MEDS: Levemir Flexpen SUBQ SCH (10:43)
--- NOTE | 2020-02-12 10:58 | NUR ---
CASE MANAGEMENT: INITIAL REVIEW 49YR OLD MALE FROM HOME CC: DYSPNEA/ RESPIRATORY DISTRESS/ RECORDED OXYGEN SAT 81% ON RA SI:PNA . SUSPECTED COVID-19 EXPOSURE . RESPIRATORY FAILURE WITH HYPOXIA . UTI 99.6 140 22 155/96 81% ON RA D.DIMER 0.82 NA+ 133 BG 253 FERR 857 AST/ALT 60/79 Hbg A1C> 16.0 LDH 264 IS:IVF NS BOLUS X2 IV ZITHROMAX X1 IV ROCEPHIN X1 PLAQUENIL PO X1 TYLENOL PO X1 COMBIVENT RESPIMAT INH X3 LOVENOX SQ X1 CHEST X-RAY- Slight right lung base opacity, correlate with aspiration/atelectasis/infectious process. INFLUENZA- BLOOD CULTURES- \: 4E MED SURG UNIT DCP: HOME WHEN STABLE PLAN: CONT BREATHING TREATMENTS COVID-19 R/O CASE MANAGEMENT: REVIEW 02/11/20 SI:PNA . SUSPECTED COVID-19 EXPOSURE . RESPIRATORY FAILURE WITH HYPOXIA . UTI 99.9 81 20 131/81 98 % ON 2L NC IS:IV ZITHROMAX X1 IV ROCEPHIN X1 LEVEMIR SQ QD \: 4E MED SURG UNIT DCP: HOME WHEN STABLE PLAN: CONT BREATHING TREATMENTS COVID-19 R/O CASE MANAGEMENT: REVIEW 02/12/20 SI:PNA . SUSPECTED COVID-19 EXPOSURE . RESPIRATORY FAILURE WITH HYPOXIA . UTI 97.5 90 21 149/79 95% ON 2L NC IS:IV ZITHROMAX QD IV ROCEPHIN QD LEVEMIR SQ QD LOVENOX SQ Q24HR PROTONIX PO QD \: 4E MED SURG UNIT DCP: HOME WHEN STABLE PLAN: CONT BREATHING TREATMENTS COVID-19 R/O BLOOD CULTURES -PENDING
[2020-02-12 12:00] VITALS: BP 137/75
--- NOTE | 2020-02-12 12:23 | General Progress Note ---
Assessment/Plan Assessment/Plan: S: I am ok O: seems comfortable. no chest pain. minimal sob. .PHYSICAL EXAMINATION:HEAD AND NECK: Atraumatic and normocephalic. CHEST: Clear to auscultation.HEART: S1, S2. Regular rate and rhythm. ABDOMEN: Soft. No organomegaly.MUSCULOSKELETAL: No gross focal deficits. NEUROLOGICAL: Patient is awake, alert and oriented x3. LABORATORY DATA: Lab dated February 11 reviewed IMAGING: Chest x-ray dated February 09 shows right lung opacity. ASSESSMENT AND PLAN: 1. Community-acquired pneumonia, possibilities of COVID-19 cannot be excluded. 2. Diabetes type 2, uncontrolled. 3. Abnormal LFT. 4. Hyponatremia. 5. UTI. 6. GI and DVT prophylaxis. PLAN OF CARE: current management Subjective Allergies: Coded Allergies: No Known Allergies (Unverified , 02/10/20) Objective Last 24 Hour Vital Signs Date Time Temp Pulse Resp B/P (MAP) Pulse Ox O2 Delivery O2 Flow Rate FiO2 02/12/20 08:40 Nasal Cannula 2.0 02/12/20 08:00 97.5 90 21 149/79 (102) 95 02/12/20 04:00 97.5 90 21 145/79 (101) 95 02/12/20 00:53 Nasal Cannula 2.0 02/12/20 00:00 97.9 87 20 140/79 (99) 97 02/11/20 20:30 97.8 89 18 147/78 (101) 92 02/11/20 20:27 98.7 83 15 134/75 96 Nasal Cannula 2.0 02/11/20 20:00 98.7 83 15 134/75 96 Nasal Cannula 2.0 02/11/20 17:20 98.7 83 15 142/75 96 Nasal Cannula 2.0 02/11/20 15:15 79 16 139/76 99 Nasal Cannula 2.0 02/11/20 13:27 99.0 86 17 135/60 96 Nasal Cannula 2.0 Intake and Output 02/11/20 02/12/20 19:00 07:00 Intake Total 360 ml Balance 360 ml Other 360 ml # Voids 2 Laboratory Tests 02/11/20 14:20: Hepatitis A IgM Antibody Negative, Hepatitis B Surface Antigen Negative, Hepatitis B Core IgM Antibody Negative, Hepatitis C Antibody <0.1 02/12/20 06:00: White Blood Count 6.7, Red Blood Count 5.19, Hemoglobin 16.0, Hematocrit 43.6, Mean Corpuscular Volume 84, Mean Corpuscular Hemoglobin 30.7, Mean Corpuscular Hemoglobin Concent 36.6H, Red Cell Distribution Width 9.9L, Platelet Count 165, Mean Platelet Volume 9.2, Neutrophils (%) (Auto) , Lymphocytes (%) (Auto) , Monocytes (%) (Auto) , Eosinophils (%) (Auto) , Basophils (%) (Auto) , Differential Total Cells Counted 100, Neutrophils % (Manual) 79H, Lymphocytes % (Manual) 15L, Monocytes % (Manual) 5, Eosinophils % (Manual) 1, Basophils % ( Manual) 0, Band Neutrophils 0, Platelet Estimate Adequate, Platelet Morphology Normal, Red Blood Cell Morphology Normal, Sodium Level 136, Potassium Level 3.8 , Chloride Level 100, Carbon Dioxide Level 29, Anion Gap 7, Blood Urea Nitrogen 5L, Creatinine 0.7, Estimat Glomerular Filtration Rate > 60, Glucose Level 144#H , Hemoglobin A1c 9.2H, Calcium Level 8.2L, Total Bilirubin 0.8, Aspartate Amino Transf (AST/SGOT) 38H, Alanine Aminotransferase (ALT/SGPT) 60, Alkaline Phosphatase 71, Total Protein 6.9, Albumin 2.5L, Globulin 4.4, Albumin/Globulin Ratio 0.6L, Interleukin 6 (IL-6) [Pending], Thyroid Stimulating Hormone (TSH) 1.235 Height (Feet): 5 Height (Inches): 5.00 Weight (Pounds): 180 Myla Vargas MD February 12, 2020 12:23
--- NOTE | 2020-02-12 14:16 | Diagnostic Imaging Report ---
Indication: Shortness of breath Technique: One view of the chest Comparison: 02/10/2020 Findings: There is interim development of left retrocardiac infiltrate and increased right basilar infiltrate. No definite effusions. The heart size is upper limits of normal. Impression: New/increased bilateral basilar infiltrates, since previous exam of 2 days earlier
[2020-02-12 16:00] VITALS: BP 130/75
--- NOTE | 2020-02-12 19:05 | NUR ---
NURSE NOTES: Received report from QUITA Bustamante. AAOx4, on NC 2L, ambulatory. IV intact and patent. No acute distress noted. No labored breathing. Bed is low and locked, side rails x2 up, alarm on, and call light in reach. Will continue to monitor.
[2020-02-12 20:00] VITALS: BP 140/81
--- NOTE | 2020-02-12 21:07 | NUR ---
NURSE NOTES: Received result from the lab that pt has covid positive. Left message Dr. Hill. Addendum: 02/12/20 at 2242 by PHILIP PEREYRA RN RN NURSE NOTES: Called Dr. Upton. No new order received.
[2020-02-12] MEDS: Azithromycin 500 MG in NS 275 ML IV SCH (22:02)
--- NOTE | 2020-02-12 23:33 | Cardiology Progress Note ---
Assessment/Plan Assessment/Plan 1. Sinus tachycardia, due to hypoxemia, continue IV hydration, not wishing to use AV dwayne agent at this point. 2. Hyperglycemia with no history of diabetes mellitus. 3. Hyponatremia. 4. Elevated D-dimer in this patient could be secondary to microvascular thrombus formation ? Lovenox treatment. 5. Acute respiratory failure. Subjective Subjective No cardiac events noted. Objective Last 24 Hour Vital Signs Date Time Temp Pulse Resp B/P (MAP) Pulse Ox O2 Delivery O2 Flow Rate FiO2 02/12/20 21:00 Nasal Cannula 2.0 02/12/20 20:00 100.2 92 24 140/81 (100) 94 02/12/20 16:00 98.8 91 21 130/75 (93) 95 02/12/20 12:00 97.2 89 21 137/75 (95) 95 02/12/20 08:40 Nasal Cannula 2.0 02/12/20 08:00 97.5 90 21 149/79 (102) 95 02/12/20 04:00 97.5 90 21 145/79 (101) 95 02/12/20 00:53 Nasal Cannula 2.0 02/12/20 00:00 97.9 87 20 140/79 (99) 97 Intake and Output 02/11/20 02/12/20 19:00 07:00 Intake Total 360 ml Balance 360 ml Other 360 ml # Voids 2 Laboratory Tests Test 02/12/20 06:00 White Blood Count 6.7 K/UL (4.8-10.8) Red Blood Count 5.19 M/UL (4.70-6.10) Hemoglobin 16.0 G/DL (14.2-18.0) Hematocrit 43.6 % (42.0-52.0) Mean Corpuscular Volume 84 FL (80-99) Mean Corpuscular Hemoglobin 30.7 PG (27.0-31.0) Mean Corpuscular Hemoglobin Concent 36.6 G/DL (32.0-36.0) H Red Cell Distribution Width 9.9 % (11.6-14.8) L Platelet Count 165 K/UL (150-450) Mean Platelet Volume 9.2 FL (6.5-10.1) Neutrophils (%) (Auto) % (45.0-75.0) Lymphocytes (%) (Auto) % (20.0-45.0) Monocytes (%) (Auto) % (1.0-10.0) Eosinophils (%) (Auto) % (0.0-3.0) Basophils (%) (Auto) % (0.0-2.0) Differential Total Cells Counted 100 Neutrophils % (Manual) 79 % (45-75) H Lymphocytes % (Manual) 15 % (20-45) L Monocytes % (Manual) 5 % (1-10) Eosinophils % (Manual) 1 % (0-3) Basophils % (Manual) 0 % (0-2) Band Neutrophils 0 % (0-8) Platelet Estimate Adequate Platelet Morphology Normal Red Blood Cell Morphology Normal Sodium Level 136 MMOL/L (136-145) Potassium Level 3.8 MMOL/L (3.5-5.1) Chloride Level 100 MMOL/L (98-107) Carbon Dioxide Level 29 MMOL/L (21-32) Anion Gap 7 mmol/L (5-15) Blood Urea Nitrogen 5 mg/dL (7-18) L Creatinine 0.7 MG/DL (0.55-1.30) Estimat Glomerular Filtration Rate > 60 mL/min (>60) Glucose Level 144 MG/DL (74-106) #H Hemoglobin A1c 9.2 % (4.3-6.0) H Calcium Level 8.2 MG/DL (8.5-10.1) L Total Bilirubin 0.8 MG/DL (0.2-1.0) Aspartate Amino Transf (AST/SGOT) 38 U/L (15-37) H Alanine Aminotransferase (ALT/SGPT) 60 U/L (12-78) Alkaline Phosphatase 71 U/L (46-116) Total Protein 6.9 G/DL (6.4-8.2) Albumin 2.5 G/DL (3.4-5.0) L Globulin 4.4 g/dL Albumin/Globulin Ratio 0.6 (1.0-2.7) L Interleukin 6 (IL-6) Pending Thyroid Stimulating Hormone (TSH) 1.235 uiU/mL (0.358-3.740) Microbiology Date/Time Source Procedure Growth Status 02/10/20 22:35 Blood Blood Culture - Preliminary NO GROWTH AFTER 24 HOURS Resulted 02/10/20 22:30 Blood Blood Culture - Preliminary NO GROWTH AFTER 24 HOURS Resulted 02/10/20 22:35 Nasal Nares - Final Complete 02/10/20 22:35 Nasal Nares - Final Complete Objective HEENT: Atraumatic and normocephalic. Anicteric. Pupils are equal, round, and reactive to light and accommodation. Extraocular muscles intact. NECK: JVP less than 5 cm. No carotid bruit. Carotid upstrokes 2+ bilaterally. CARDIOVASCULAR: Normal S1, S2. Tachycardic. No murmurs, gallops, or rubs. LUNGS: Bibasilar crackles. ABDOMEN: Soft, nontender, and nondistended. No hepatosplenomegaly. Positive bowel sounds. EXTREMITIES: No evidence of edema, clubbing, or cyanosis. Devyn Mina MD February 12, 2020 23:33
[2020-02-12] MEDS: cefTRIAXone 1gm/D5W 55ml IVPB SCH ×2 (23:57)
[2020-02-12] MEDS: Acetaminophen 650 MG SUPP RECTAL PRN (23:58)
[2020-02-13] VITALS: BP 132/77
[2020-02-13 04:00] VITALS: BP 145/79
[2020-02-13] MEDS: Acetaminophen 650 MG SUPP RECTAL PRN (04:28)
[2020-02-13] MEDS: NovoLOG Insulin Flexpen SUBQ SCH ×4 (05:46→20:55)
[2020-02-13 06:39] LABS: BASOPHILS % (AUTO) 0.9 % (0.0-2.0); EOSINOPHILS % (AUTO) 2.1 % (0.0-3.0); HEMATOCRIT 45.3 % (42.0-52.0); HEMOGLOBIN 16.2 G/DL (14.2-18.0); LYMPHOCYTES % (AUTO) 14.9 % (20.0-45.0); MEAN CORPUSCULAR VOLUME 85 FL (80-99); MONOCYTES % (AUTO) 8.6 % (1.0-10.0); NEUTROPHILS % (AUTO) 73.5 % (45.0-75.0); PLATELET COUNT 196 K/UL (150-450); RED BLOOD COUNT 5.32 M/UL (4.70-6.10); RED CELL DISTRIBUTION WIDTH 10.2 % (11.6-14.8); WHITE BLOOD COUNT 7.6 K/UL (4.8-10.8)
--- NOTE | 2020-02-13 07:38 | NUR ---
HAND-OFF: Report given to QUITA Carrion.
--- NOTE | 2020-02-13 07:41 | NUR ---
NURSE NOTES: Report received from Charlee DEVLIN. Patient seen on rounds, AxOx4, nurse reports fever overnight Tmax 100.3, on 2lpm via NC tolerating well, no SOB noted. PIV on right AC patent and intact. Isolation precautions maintained. Bed low and locked, siderails up x2, call light within reach, instructed to call nurse for assistance, will continue to monitor.
[2020-02-13 08:00] VITALS: BP 152/74
[2020-02-13] MEDS: Enoxaparin 40mg Inj SUBQ SCH (08:31)
[2020-02-13] MEDS: Levemir Flexpen SUBQ SCH (08:33)
--- NOTE | 2020-02-13 11:37 | General Progress Note ---
Assessment/Plan Status: stable Assessment/Plan: S: I am ok O: seems comfortable. no chest pain. minimal sob. .PHYSICAL EXAMINATION:HEAD AND NECK: Atraumatic and normocephalic. CHEST: Clear to auscultation.HEART: S1, S2. Regular rate and rhythm. ABDOMEN: Soft. No organomegaly.MUSCULOSKELETAL: No gross focal deficits. NEUROLOGICAL: Patient is awake, alert and oriented x3. LABORATORY DATA: Lab dated February 12 reviewed ASSESSMENT AND PLAN: 1. COVID 19- pneumonia, 2. Diabetes type 2, uncontrolled. 3. Abnormal LFT. 4. Hyponatremia. 5. UTI. 6. GI and DVT prophylaxis. PLAN OF CARE: current management Subjective Allergies: Coded Allergies: No Known Allergies (Unverified , 02/10/20) Objective Last 24 Hour Vital Signs Date Time Temp Pulse Resp B/P (MAP) Pulse Ox O2 Delivery O2 Flow Rate FiO2 02/13/20 09:00 Nasal Cannula 2.0 02/13/20 08:00 98.1 95 20 152/74 (100) 90 02/13/20 04:58 99.1 02/13/20 04:00 100.0 85 22 145/79 (101) 93 02/13/20 00:00 100.2 90 21 132/77 (95) 96 02/12/20 21:00 Nasal Cannula 2.0 02/12/20 20:00 100.2 92 24 140/81 (100) 94 02/12/20 16:00 98.8 91 21 130/75 (93) 95 02/12/20 12:00 97.2 89 21 137/75 (95) 95 Intake and Output 02/12/20 02/13/20 19:00 07:00 Intake Total 940 ml 400 ml Balance 940 ml 400 ml Intake Oral 940 ml Other 400 ml # Voids 3 2 Laboratory Tests 02/13/20 05:00: White Blood Count 7.6, Red Blood Count 5.32, Hemoglobin 16.2, Hematocrit 45.3, Mean Corpuscular Volume 85, Mean Corpuscular Hemoglobin 30.4, Mean Corpuscular Hemoglobin Concent 35.7, Red Cell Distribution Width 10.2L, Platelet Count 196, Mean Platelet Volume 8.0, Neutrophils (%) (Auto) 73.5, Lymphocytes (%) (Auto) 14.9L, Monocytes (%) (Auto) 8.6, Eosinophils (%) (Auto) 2.1, Basophils (%) (Auto ) 0.9 Height (Feet): 5 Height (Inches): 5.00 Weight (Pounds): 181 Myla Vargas MD February 13, 2020 11:37
[2020-02-13 12:00] VITALS: BP 138/82
--- NOTE | 2020-02-13 14:45 | Pulmonology Progress Note ---
Rakel Jerry RESIDENTIAL WORKER 02/13/20 1445: Subjective Allergies: Coded Allergies: No Known Allergies (Unverified , 02/10/20) Subjective no leukocytosis, + lymphopenia + fevers on O2 via NC, no signs of resp distress COVID02/09 detected, remains in isolation ST resolved , likely was due to fever BS stable with insulin therapy ( Levemir dose increased) Objective Last 24 Hour Vital Signs Date Time Temp Pulse Resp B/P (MAP) Pulse Ox O2 Delivery O2 Flow Rate FiO2 02/13/20 12:00 100.0 90 20 138/82 (100) 95 02/13/20 09:00 Nasal Cannula 2.0 02/13/20 08:00 98.1 95 20 152/74 (100) 90 02/13/20 04:58 99.1 02/13/20 04:00 100.0 85 22 145/79 (101) 93 02/13/20 00:00 100.2 90 21 132/77 (95) 96 02/12/20 21:00 Nasal Cannula 2.0 02/12/20 20:00 100.2 92 24 140/81 (100) 94 02/12/20 16:00 98.8 91 21 130/75 (93) 95 Intake and Output 02/12/20 02/13/20 19:00 07:00 Intake Total 940 ml 400 ml Balance 940 ml 400 ml Intake Oral 940 ml Other 400 ml # Voids 3 2 Objective General Appearance: no apparent distress, alert Lines, tubes and drains: peripheral HEENT: normocephalic, atraumatic, anicteric, mucous membranes moist, PERRL Neck: non-tender, supple, limited range of motion Respiratory/Chest: chest wall non-tender, no respiratory distress, no accessory muscle use, decreased breath sounds, on O2 via NC Cardiovascular/Chest: normal peripheral pulses, normal rate, regular rhythm Abdomen: normal bowel sounds, non tender, soft Extremities: normal range of motion, non-tender, no calf tenderness, normal capillary refill Skin Exam: normal pigmentation, warm/dry Neurologic: echo vascular tech II-XII grossly normal, no motor/sensory deficits, alert, oriented x 3, responsive Musculoskeletal: normal muscle bulk Microbiology Date/Time Source Procedure Growth Status 02/10/20 22:35 Blood Blood Culture - Preliminary NO GROWTH AFTER 48 HOURS Resulted 02/10/20 22:30 Blood Blood Culture - Preliminary NO GROWTH AFTER 48 HOURS Resulted 02/10/20 22:35 Nasal Nares - Final Complete 02/10/20 22:35 Nasal Nares - Final Complete 02/10/20 22:35 Nasopharynx Coronavirus COVID-19 PCR ([facility]) - Final Complete Laboratory Tests 02/13/20 05:00: White Blood Count 7.6, Red Blood Count 5.32, Hemoglobin 16.2, Hematocrit 45.3, Mean Corpuscular Volume 85, Mean Corpuscular Hemoglobin 30.4, Mean Corpuscular Hemoglobin Concent 35.7, Red Cell Distribution Width 10.2L, Platelet Count 196, Mean Platelet Volume 8.0, Neutrophils (%) (Auto) 73.5, Lymphocytes (%) (Auto) 14.9L, Monocytes (%) (Auto) 8.6, Eosinophils (%) (Auto) 2.1, Basophils (%) (Auto ) 0.9 Current Medications Medications (Trade) Dose Ordered Sig/Monster Route PRN Reason Start Time Stop Time Status Last Admin Dose Admin Acetaminophen (Tylenol) 650 mg Q4H PRN RECTAL Mild Pain (Pain Scale 1-3) 02/11/20 00:15 03/12/20 00:14 02/13/20 04:28 Albuterol/ Ipratropium (Combivent Respimat) 1 puff Q4H PRN INH Shortness of Breath 02/12/20 06:15 05/11/20 09:59 Azithromycin 500 mg/Sodium Chloride 275 ml @ 275 mls/hr Q24H IV 02/12/20 21:00 02/17/20 20:59 02/12/20 22:02 Ceftriaxone Sodium 1 gm/ Dextrose 55 ml @ 110 mls/hr Q24H IVPB 02/12/20 22:00 02/19/20 21:59 02/12/20 23:57 Dextrose (Dextrose 50%) 25 ml Q30M PRN IV Hypoglycemia 02/11/20 00:15 05/11/20 00:14 Dextrose (Dextrose 50%) 50 ml Q30M PRN IV Hypoglycemia 02/11/20 00:15 05/11/20 00:14 Enoxaparin Sodium (Lovenox) 40 mg Q24H SUBQ 02/11/20 09:00 8/9/20 08:59 02/13/20 08:31 Insulin Aspart (NovoLOG) BEFORE MEALS AND HS SUBQ 02/11/20 11:30 05/11/20 11:29 02/13/20 12:56 Insulin Detemir (Levemir) 20 units DAILY SUBQ 02/12/20 09:00 05/11/20 10:59 02/13/20 08:33 Lorazepam (Ativan 2mg/ml 1ml) 0.5 mg Q4H PRN IV For Anxiety 02/11/20 00:15 02/18/20 00:14 Morphine Sulfate (Morphine Sulfate) 2 mg EVERY 6 HOURS PRN IVP Moderate Pain (Pain Scale 4-6) 02/11/20 00:15 02/18/20 00:14 Ondansetron HCl (Zofran) 4 mg Q6H PRN IVP Nausea & Vomiting 02/11/20 00:15 03/12/20 00:14 Pantoprazole (Protonix) 40 mg DAILY ORAL 02/11/20 09:00 03/12/20 08:59 02/13/20 08:30 Polyethylene Glycol (Miralax) 17 gm HSPRN PRN ORAL Constipation 02/11/20 00:15 03/12/20 00:14 Assessment/Plan Assessment/Plan ASSESSMENT Acute hypoxemic respiratory failure Confirmed COVID-19 infection PNA due to COVID 19 infection New onset of DM with hyperglycemia Sinus tachycardia - resolved Transaminitis PLAN OF CARE MS floor isolation room empiric abx , continue Rocephin and Azithromycin ( Doxy on back order, unable to order) ID consult per primary discretion , hold on Plaquenil for now BCX 02/09 NGTD influenza swab 02/09 NGT SARS CoV-2 by PCR 02/09 detected , remains in isolation O2 titrate to keep sat above 90% MDI with Albuterol prn ( no HHN while PUI for CoVID) CXR 02/11 -New/increased bilateral basilar infiltrates, since previous exam of 2 days earlier self prone position as tolerating fup with CXR DVT prophylaxis minimally elevated D dimer venous Duplex BLE ECHO with pEF 60% and RVSP of 23 trend ferritin, CRP, LDH in few days [id number] BS management: BS monitor : AC and HS on long acting Levemir ( dose increased by attending) and resistant SSI HgA1c>16,repeated 9.2 diabetic diet endo eval as per attending discretion diabetic teaching ( as new onset of DM) check TSH WNL trend LFT-trending down hep panel NGT GI prophayxlis supportive care case discussed and evaluated by supervising physician Willie Upton MD 02/13/20 1738: Subjective Allergies: Coded Allergies: No Known Allergies (Unverified , 02/10/20) Assessment/Plan Assessment/Plan Patient seen and examined with RESIDENTIAL WORKER. Agree with above A&P as it reflects our joint deliberations. COVID came back + . Supportive care, HFA's, O2, Abx, LMWH, OOB Rakel Jerry NP February 13, 2020 14:45 Willie Upton MD February 13, 2020 17:38
[2020-02-13 16:00] VITALS: BP 135/79
--- NOTE | 2020-02-13 19:27 | NUR ---
HAND-OFF: Report given to Dinorah DEVLIN. Endorsed patient's cellphone being charged at nurse's station with charging cable.
--- NOTE | 2020-02-13 20:00 | NUR ---
NURSE NOTES: Received patient awake, alert, verbal, no SOB, resting in bed comfortably without complaints.
[2020-02-13 20:17] VITALS: BP 141/80
[2020-02-13] MEDS: Azithromycin 500 MG in NS 275 ML IV SCH (20:29)
[2020-02-13] MEDS: cefTRIAXone 1gm/D5W 55ml IVPB SCH ×2 (22:13)
--- NOTE | 2020-02-13 22:20 | Cardiology Progress Note ---
Assessment/Plan Assessment/Plan 1. Sinus tachycardia, due to hypoxemia, continue IV hydration, not wishing to use AV dwayne agent at this point. Echo reveals normal LV function with LVEF at 60%. 2. Hyperglycemia with no history of diabetes mellitus. 3. Hyponatremia, resolved. 4. Elevated D-dimer in this patient could be secondary to microvascular thrombus formation ? Lovenox treatment. 5. Acute respiratory failure. 6. New onset DM. Subjective Subjective No cardiac events noted. Objective Last 24 Hour Vital Signs Date Time Temp Pulse Resp B/P (MAP) Pulse Ox O2 Delivery O2 Flow Rate FiO2 02/13/20 20:17 98.6 82 22 141/80 (100) 95 02/13/20 20:08 Nasal Cannula 2.0 02/13/20 17:38 98.2 02/13/20 16:00 100.8 93 20 135/79 (97) 95 02/13/20 12:00 100.0 90 20 138/82 (100) 95 02/13/20 09:00 Nasal Cannula 2.0 02/13/20 08:00 98.1 95 20 152/74 (100) 90 02/13/20 04:58 99.1 02/13/20 04:00 100.0 85 22 145/79 (101) 93 02/13/20 00:00 100.2 90 21 132/77 (95) 96 Intake and Output 02/12/20 02/13/20 19:00 07:00 Intake Total 940 ml 400 ml Balance 940 ml 400 ml Intake Oral 940 ml Other 400 ml # Voids 3 2 2D Echo: LVEF 60%, Grade I LVDD, RVSP 23 mmHg Laboratory Tests Test 02/13/20 05:00 White Blood Count 7.6 K/UL (4.8-10.8) Red Blood Count 5.32 M/UL (4.70-6.10) Hemoglobin 16.2 G/DL (14.2-18.0) Hematocrit 45.3 % (42.0-52.0) Mean Corpuscular Volume 85 FL (80-99) Mean Corpuscular Hemoglobin 30.4 PG (27.0-31.0) Mean Corpuscular Hemoglobin Concent 35.7 G/DL (32.0-36.0) Red Cell Distribution Width 10.2 % (11.6-14.8) L Platelet Count 196 K/UL (150-450) Mean Platelet Volume 8.0 FL (6.5-10.1) Neutrophils (%) (Auto) 73.5 % (45.0-75.0) Lymphocytes (%) (Auto) 14.9 % (20.0-45.0) L Monocytes (%) (Auto) 8.6 % (1.0-10.0) Eosinophils (%) (Auto) 2.1 % (0.0-3.0) Basophils (%) (Auto) 0.9 % (0.0-2.0) Microbiology Date/Time Source Procedure Growth Status 02/10/20 22:35 Blood Blood Culture - Preliminary NO GROWTH AFTER 48 HOURS Resulted 02/10/20 22:30 Blood Blood Culture - Preliminary NO GROWTH AFTER 48 HOURS Resulted 02/10/20 22:35 Nasal Nares - Final Complete 02/10/20 22:35 Nasal Nares - Final Complete 02/10/20 22:35 Nasopharynx Coronavirus COVID-19 PCR ([facility]) - Final Complete Objective HEENT: Atraumatic and normocephalic. Anicteric. Pupils are equal, round, and reactive to light and accommodation. Extraocular muscles intact. NECK: JVP less than 5 cm. No carotid bruit. Carotid upstrokes 2+ bilaterally. CARDIOVASCULAR: Normal S1, S2. Tachycardic. No murmurs, gallops, or rubs. LUNGS: Bibasilar crackles. ABDOMEN: Soft, nontender, and nondistended. No hepatosplenomegaly. Positive bowel sounds. EXTREMITIES: No evidence of edema, clubbing, or cyanosis. Devyn Mina MD February 13, 2020 22:20
[2020-02-14] VITALS: BP 115/70
[2020-02-14 04:00] VITALS: BP 133/78
[2020-02-14] MEDS: NovoLOG Insulin Flexpen SUBQ SCH ×4 (05:49→21:07)
--- NOTE | 2020-02-14 07:14 | NUR ---
HAND-OFF: Report given to QUITA Bashir.
[2020-02-14 07:22] LABS: BASOPHILS % (AUTO) 0.9 % (0.0-2.0); EOSINOPHILS % (AUTO) 2.6 % (0.0-3.0); HEMATOCRIT 40.3 % (42.0-52.0); HEMOGLOBIN 14.6 G/DL (14.2-18.0); LYMPHOCYTES % (AUTO) 14.7 % (20.0-45.0); MEAN CORPUSCULAR VOLUME 84 FL (80-99); MONOCYTES % (AUTO) 11.4 % (1.0-10.0); NEUTROPHILS % (AUTO) 70.5 % (45.0-75.0); PLATELET COUNT 232 K/UL (150-450); RED CELL DISTRIBUTION WIDTH 9.7 % (11.6-14.8); WHITE BLOOD COUNT 6.4 K/UL (4.8-10.8)
[2020-02-14 08:00] VITALS: BP 156/82
--- NOTE | 2020-02-14 08:18 | Pulmonology Progress Note ---
Rakel Jerry CLIENT SERVICE PROFESSIONAL 02/14/20 0818: Subjective Allergies: Coded Allergies: No Known Allergies (Unverified , 02/10/20) Subjective no leukocytosis, + lymphopenia + fevers on O2 via NC, no signs of resp distress COVID02/09 detected, remains in isolation ST resolved , likely was due to fever BS stable with insulin therapy ( Levemir dose increased) Objective Last 24 Hour Vital Signs Date Time Temp Pulse Resp B/P (MAP) Pulse Ox O2 Delivery O2 Flow Rate FiO2 02/14/20 04:00 99.6 90 22 133/78 (96) 92 02/14/20 00:00 99.5 86 20 115/70 (85) 96 02/13/20 20:17 98.6 82 22 141/80 (100) 95 02/13/20 20:08 Nasal Cannula 2.0 02/13/20 17:38 98.2 02/13/20 16:00 100.8 93 20 135/79 (97) 95 02/13/20 12:00 100.0 90 20 138/82 (100) 95 02/13/20 09:00 Nasal Cannula 2.0 Intake and Output 02/13/20 02/14/20 19:00 07:00 Intake Total 690 ml Balance 690 ml IV Total 330 ml Other 360 ml # Voids 3 2 Objective General Appearance: no apparent distress, alert Lines, tubes and drains: peripheral HEENT: normocephalic, atraumatic, anicteric, mucous membranes moist, PERRL Neck: non-tender, supple, limited range of motion Respiratory/Chest: chest wall non-tender, no respiratory distress, no accessory muscle use, decreased breath sounds, on O2 via NC Cardiovascular/Chest: normal peripheral pulses, normal rate, regular rhythm Abdomen: normal bowel sounds, non tender, soft Extremities: normal range of motion, non-tender, no calf tenderness, normal capillary refill Skin Exam: normal pigmentation, warm/dry Neurologic: drain tiler II-XII grossly normal, no motor/sensory deficits, alert, oriented x 3, responsive Musculoskeletal: normal muscle bulk Laboratory Tests 02/14/20 04:00: White Blood Count 6.4, Red Blood Count 4.80, Hemoglobin 14.6, Hematocrit 40.3L, Mean Corpuscular Volume 84, Mean Corpuscular Hemoglobin 30.4, Mean Corpuscular Hemoglobin Concent 36.2H, Red Cell Distribution Width 9.7L, Platelet Count 232, Mean Platelet Volume 8.4, Neutrophils (%) (Auto) 70.5, Lymphocytes (%) (Auto) 14.7L, Monocytes (%) (Auto) 11.4H, Eosinophils (%) (Auto) 2.6, Basophils (%) ( Auto) 0.9, Lactate Dehydrogenase 259H, C-Reactive Protein, Quantitative 11.3H Current Medications Medications (Trade) Dose Ordered Sig/Monster Route PRN Reason Start Time Stop Time Status Last Admin Dose Admin Acetaminophen (Tylenol) 500 mg Q4H PRN ORAL Mild Pain (Pain Scale 1-3) 02/14/20 08:15 03/15/20 08:14 UNV Acetaminophen (Tylenol) 650 mg Q4H PRN RECTAL Mild Pain (Pain Scale 1-3) 02/11/20 00:15 03/12/20 00:14 02/13/20 04:28 Acetaminophen (Tylenol) 650 mg Q6H PRN ORAL Temp >100.5 02/13/20 16:45 03/14/20 16:44 02/13/20 17:08 Albuterol/ Ipratropium (Combivent Respimat) 1 puff Q4H PRN INH Shortness of Breath 02/12/20 06:15 05/11/20 09:59 Azithromycin 500 mg/Sodium Chloride 275 ml @ 275 mls/hr Q24H IV 02/12/20 21:00 02/17/20 20:59 02/13/20 20:29 Ceftriaxone Sodium 1 gm/ Dextrose 55 ml @ 110 mls/hr Q24H IVPB 02/12/20 22:00 02/19/20 21:59 02/13/20 22:13 Dextrose (Dextrose 50%) 25 ml Q30M PRN IV Hypoglycemia 02/11/20 00:15 05/11/20 00:14 Dextrose (Dextrose 50%) 50 ml Q30M PRN IV Hypoglycemia 02/11/20 00:15 05/11/20 00:14 Enoxaparin Sodium (Lovenox) 40 mg Q24H SUBQ 02/11/20 09:00 05/11/20 08:59 02/13/20 08:31 Insulin Aspart (NovoLOG) BEFORE MEALS AND HS SUBQ 02/11/20 11:30 05/11/20 11:29 02/14/20 05:49 Insulin Detemir (Levemir) 20 units DAILY SUBQ 02/12/20 09:00 05/11/20 10:59 02/13/20 08:33 Lorazepam (Ativan 2mg/ml 1ml) 0.5 mg Q4H PRN IV For Anxiety 02/11/20 00:15 02/18/20 00:14 Morphine Sulfate (Morphine Sulfate) 2 mg EVERY 6 HOURS PRN IVP Moderate Pain (Pain Scale 4-6) 02/11/20 00:15 02/18/20 00:14 Ondansetron HCl (Zofran) 4 mg Q6H PRN IVP Nausea & Vomiting 02/11/20 00:15 03/12/20 00:14 Pantoprazole (Protonix) 40 mg DAILY ORAL 02/11/20 09:00 03/12/20 08:59 02/13/20 08:30 Polyethylene Glycol (Miralax) 17 gm HSPRN PRN ORAL Constipation 02/11/20 00:15 03/12/20 00:14 Assessment/Plan Assessment/Plan ASSESSMENT Acute hypoxemic respiratory failure Confirmed COVID-19 infection PNA due to COVID 19 infection New onset of DM with hyperglycemia Sinus tachycardia - resolved Transaminitis PLAN OF CARE MS floor isolation room empiric abx , continue Rocephin and Azithromycin ( Doxy on back order, unable to order) ID consult per primary discretion , hold on Plaquenil for now BCX 02/09 NGTD influenza swab 02/09 NGT SARS CoV-2 by PCR 02/09 detected , remains in isolation O2 titrate to keep sat above 90% MDI with Albuterol prn ( no HHN while PUI for CoVID) CXR 02/11 -New/increased bilateral basilar infiltrates, since previous exam of 2 days earlier self prone position as tolerating fup with CXR in few days DVT prophylaxis minimally elevated D dimer venous Duplex BLE ECHO with pEF 60% and RVSP of 23 trend ferritin, CRP -11.3 ( trending up), LDH 259 ( about the same) [id number] BS management: BS monitor : AC and HS on long acting Levemir ( dose increased by attending) and resistant SSI HgA1c>16,repeated 9.2 diabetic diet endo eval as per attending discretion diabetic teaching ( as new onset of DM) check TSH WNL trend LFT-trending down hep panel NGT GI prophayxlis supportive care case discussed and evaluated by supervising physician Willie Upton MD 02/14/20 1126: Subjective Allergies: Coded Allergies: No Known Allergies (Unverified , 02/10/20) Assessment/Plan Assessment/Plan Patient seen and examined with CLIENT SERVICE PROFESSIONAL. Agree with above A&P as it reflects our joint deliberations. Rakel Jerry NP February 14, 2020 08:18 Willie Upton MD February 14, 2020 11:26
[2020-02-14] MEDS: Enoxaparin 40mg Inj SUBQ SCH (08:26)
[2020-02-14] MEDS: Levemir Flexpen SUBQ SCH (08:27)
[2020-02-14] MEDS ORDERED: Acetaminophen 500mg (ES) tab ORAL PRN (09:41)
[2020-02-14] MEDS ORDERED: Acetaminophen 650 MG SUPP RECTAL PRN (09:45)
--- NOTE | 2020-02-14 11:34 | General Progress Note ---
Assessment/Plan Status: stable Assessment/Plan: S: I am ok O: seems comfortable. no chest pain. minimal sob. .PHYSICAL EXAMINATION:HEAD AND NECK: Atraumatic and normocephalic. CHEST: Clear to auscultation.HEART: S1, S2. Regular rate and rhythm. ABDOMEN: Soft. No organomegaly.MUSCULOSKELETAL: No gross focal deficits. NEUROLOGICAL: Patient is awake, alert and oriented x3. LABORATORY DATA: Lab dated February 12 reviewed ASSESSMENT AND PLAN: 1. COVID 19- pneumonia, 2. Diabetes type 2, uncontrolled. 3. Abnormal LFT. 4. Hyponatremia. 5. UTI. 6. GI and DVT prophylaxis. PLAN OF CARE: current management Labs pending Subjective Allergies: Coded Allergies: No Known Allergies (Unverified , 02/10/20) Objective Last 24 Hour Vital Signs Date Time Temp Pulse Resp B/P (MAP) Pulse Ox O2 Delivery O2 Flow Rate FiO2 02/14/20 09:00 Nasal Cannula 2.0 02/14/20 08:53 98.8 02/14/20 08:00 98.8 99 24 156/82 (106) 91 02/14/20 04:00 99.6 90 22 133/78 (96) 92 02/14/20 00:00 99.5 86 20 115/70 (85) 96 02/13/20 20:17 98.6 82 22 141/80 (100) 95 02/13/20 20:08 Nasal Cannula 2.0 02/13/20 16:00 100.8 93 20 135/79 (97) 95 02/13/20 12:00 100.0 90 20 138/82 (100) 95 Intake and Output 02/13/20 02/14/20 19:00 07:00 Intake Total 690 ml Balance 690 ml IV Total 330 ml Other 360 ml # Voids 3 2 Laboratory Tests 02/14/20 04:00: White Blood Count 6.4, Red Blood Count 4.80, Hemoglobin 14.6, Hematocrit 40.3L, Mean Corpuscular Volume 84, Mean Corpuscular Hemoglobin 30.4, Mean Corpuscular Hemoglobin Concent 36.2H, Red Cell Distribution Width 9.7L, Platelet Count 232, Mean Platelet Volume 8.4, Neutrophils (%) (Auto) 70.5, Lymphocytes (%) (Auto) 14.7L, Monocytes (%) (Auto) 11.4H, Eosinophils (%) (Auto) 2.6, Basophils (%) ( Auto) 0.9, Lactate Dehydrogenase 259H, C-Reactive Protein, Quantitative 11.3H Height (Feet): 5 Height (Inches): 5.00 Weight (Pounds): 181 Myla Vargas MD February 14, 2020 11:34
--- NOTE | 2020-02-14 11:48 | NUR ---
MANAGER STAFFINGHEEL CEMENTER SI: PNA,COVID 19 + T. 99.6 HR 90 RR 20 B/P 156/72 2L NC O2 SAT @ 98% LACTATE D 259 IS: ROCEPHIN IV ZITHROMAX IV LOVENOX SUBC ISOLATION MED/SURG STATUS
[2020-02-14 12:00] VITALS: BP 137/74
[2020-02-14 16:00] VITALS: BP 134/75
--- NOTE | 2020-02-14 18:58 | NUR ---
HAND-OFF: Report given to QUITA Copeland.
--- NOTE | 2020-02-14 20:00 | NUR ---
NURSE NOTES: Received patient awake, alert, verbal, no SOB, resting in bed, comfortable.
[2020-02-14 20:07] VITALS: BP 148/87
[2020-02-14] MEDS: Azithromycin 500 MG in NS 275 ML IV SCH (21:06)
[2020-02-14] MEDS: cefTRIAXone 1gm/D5W 55ml IVPB SCH ×2 (22:36)
[2020-02-15] VITALS: BP 131/72
[2020-02-15 04:00] VITALS: BP 148/86
[2020-02-15] MEDS: NovoLOG Insulin Flexpen SUBQ SCH ×4 (06:30→21:40)
[2020-02-15 07:08] LABS: ALANINE AMINOTRANSFERASE 97 U/L (12-78); ALBUMIN 2.4 G/DL (3.4-5.0); ALBUMIN/GLOBULIN RATIO 0.5 (1.0-2.7); ALKALINE PHOSPHATASE 94 U/L (46-116); ANION GAP 11 mmol/L (5-15); ASPARTATE AMINO TRANSFERASE 51 U/L (15-37); BILIRUBIN,TOTAL 0.7 MG/DL (0.2-1.0); BLOOD UREA NITROGEN 9 mg/dL (7-18); CALCIUM 8.6 MG/DL (8.5-10.1); CARBON DIOXIDE 29 MMOL/L (21-32); CHLORIDE 101 MMOL/L (98-107); CREATININE 0.7 MG/DL (0.55-1.30); POTASSIUM 3.6 MMOL/L (3.5-5.1); SODIUM 141 MMOL/L (136-145)
--- NOTE | 2020-02-15 07:15 | NUR ---
HAND-OFF: Report given to Louie Givens RN.
--- NOTE | 2020-02-15 07:15 | NUR ---
NURSE NOTES: Received patient in bed. Awake, A/O x4. Patient denies pain at this time. On NC 2 lpm. IV in the Right AC, site intact. Bed low and locked, Call light within reach.
[2020-02-15 07:34] LABS: EOSINOPHILS % (AUTO) 4.2 % (0.0-3.0); HEMATOCRIT 43.4 % (42.0-52.0); HEMOGLOBIN 15.6 G/DL (14.2-18.0); LYMPHOCYTES % (AUTO) 14.5 % (20.0-45.0); MEAN CORPUSCULAR VOLUME 85 FL (80-99); MONOCYTES % (AUTO) 11.9 % (1.0-10.0); NEUTROPHILS % (AUTO) 68.4 % (45.0-75.0); PLATELET COUNT 290 K/UL (150-450); RED CELL DISTRIBUTION WIDTH 9.9 % (11.6-14.8)
[2020-02-15 08:00] VITALS: BP 140/80
--- NOTE | 2020-02-15 08:59 | Pulmonology Progress Note ---
Rakel Jerry HEATING WORKER 02/15/20 0859: Subjective Allergies: Coded Allergies: No Known Allergies (Unverified , 02/10/20) Subjective no leukocytosis, + lymphopenia still night fevers on O2 via NC, no signs of resp distress COVID02/09 detected, remains in isolation ST resolved , likely was due to fever BS stable with insulin therapy ( Levemir dose increased) Objective Last 24 Hour Vital Signs Date Time Temp Pulse Resp B/P (MAP) Pulse Ox O2 Delivery O2 Flow Rate FiO2 02/15/20 04:00 98.4 95 20 148/86 (106) 91 02/15/20 00:00 99.1 83 18 131/72 (91) 94 02/14/20 21:38 99.0 02/14/20 20:12 Nasal Cannula 2.0 02/14/20 20:07 100.4 102 20 148/87 (107) 99 02/14/20 16:00 99.3 94 24 134/75 (94) 93 02/14/20 12:00 99.5 87 23 137/74 (95) 93 02/14/20 09:00 Nasal Cannula 2.0 Intake and Output 02/14/20 02/15/20 19:00 07:00 Intake Total 400 ml 690 ml Balance 400 ml 690 ml Intake Oral 400 ml IV Total 330 ml Other 360 ml # Voids 3 2 Objective General Appearance: no apparent distress, alert, awake, responsive Lines, tubes and drains: peripheral HEENT: normocephalic, atraumatic, anicteric, mucous membranes moist, PERRL Neck: non-tender, supple, limited range of motion Respiratory/Chest: chest wall non-tender, no respiratory distress, no accessory muscle use, decreased breath sounds, on O2 via NC Cardiovascular/Chest: normal peripheral pulses, normal rate, regular rhythm Abdomen: normal bowel sounds, non tender, soft Extremities: normal range of motion, non-tender, no calf tenderness, normal capillary refill Skin Exam: normal pigmentation, warm/dry Neurologic: head soft sugar operator II-XII grossly normal, no motor/sensory deficits, alert, oriented x 3, responsive Musculoskeletal: normal muscle bulk Laboratory Tests 02/15/20 05:00: White Blood Count 7.0, Red Blood Count 5.10, Hemoglobin 15.6, Hematocrit 43.4, Mean Corpuscular Volume 85, Mean Corpuscular Hemoglobin 30.6, Mean Corpuscular Hemoglobin Concent 35.9, Red Cell Distribution Width 9.9L, Platelet Count 290, Mean Platelet Volume 8.3, Neutrophils (%) (Auto) 68.4, Lymphocytes (%) (Auto) 14.5L, Monocytes (%) (Auto) 11.9H, Eosinophils (%) (Auto) 4.2H, Basophils (%) ( Auto) 1.0, Sodium Level 141, Potassium Level 3.6, Chloride Level 101, Carbon Dioxide Level 29, Anion Gap 11, Blood Urea Nitrogen 9, Creatinine 0.7, Estimat Glomerular Filtration Rate > 60, Glucose Level 107H, Calcium Level 8.6, Total Bilirubin 0.7, Aspartate Amino Transf (AST/SGOT) 51H, Alanine Aminotransferase ( ALT/SGPT) 97H, Alkaline Phosphatase 94, Total Protein 7.3, Albumin 2.4L, Globulin 4.9, Albumin/Globulin Ratio 0.5L Current Medications Medications (Trade) Dose Ordered Sig/Monster Route PRN Reason Start Time Stop Time Status Last Admin Dose Admin Acetaminophen (Tylenol) 500 mg Q4H PRN ORAL Mild Pain (Pain Scale 1-3) 02/14/20 09:41 03/15/20 09:40 Acetaminophen (Tylenol) 650 mg Q4H PRN RECTAL Mild Pain (Pain Scale 1-3) 02/14/20 09:45 03/12/20 00:14 Acetaminophen (Tylenol) 650 mg Q6H PRN ORAL Temp >100.5 02/13/20 16:45 03/14/20 16:44 02/14/20 21:08 Albuterol/ Ipratropium (Combivent Respimat) 1 puff Q4H PRN INH Shortness of Breath 02/12/20 06:15 05/11/20 09:59 Azithromycin 500 mg/Sodium Chloride 275 ml @ 275 mls/hr Q24H IV 02/12/20 21:00 02/17/20 20:59 02/14/20 21:06 Ceftriaxone Sodium 1 gm/ Dextrose 55 ml @ 110 mls/hr Q24H IVPB 02/12/20 22:00 02/19/20 21:59 02/14/20 22:36 Dextrose (Dextrose 50%) 25 ml Q30M PRN IV Hypoglycemia 02/11/20 00:15 05/11/20 00:14 Dextrose (Dextrose 50%) 50 ml Q30M PRN IV Hypoglycemia 02/11/20 00:15 05/11/20 00:14 Enoxaparin Sodium (Lovenox) 40 mg Q24H SUBQ 02/11/20 09:00 05/11/20 08:59 02/14/20 08:26 Insulin Aspart (NovoLOG) BEFORE MEALS AND HS SUBQ 02/11/20 11:30 05/11/20 11:29 02/14/20 21:07 Insulin Detemir (Levemir) 20 units DAILY SUBQ 02/12/20 09:00 05/11/20 10:59 02/14/20 08:27 Lorazepam (Ativan 2mg/ml 1ml) 0.5 mg Q4H PRN IV For Anxiety 02/11/20 00:15 02/18/20 00:14 Morphine Sulfate (Morphine Sulfate) 2 mg EVERY 6 HOURS PRN IVP Moderate Pain (Pain Scale 4-6) 02/11/20 00:15 02/18/20 00:14 Ondansetron HCl (Zofran) 4 mg Q6H PRN IVP Nausea & Vomiting 02/11/20 00:15 03/12/20 00:14 Pantoprazole (Protonix) 40 mg DAILY ORAL 02/11/20 09:00 03/12/20 08:59 02/14/20 08:23 Polyethylene Glycol (Miralax) 17 gm HSPRN PRN ORAL Constipation 02/11/20 00:15 03/12/20 00:14 Assessment/Plan Assessment/Plan ASSESSMENT Acute hypoxemic respiratory failure/initial -resolved Confirmed COVID-19 infection PNA due to COVID 19 infection New onset of DM with hyperglycemia Sinus tachycardia - resolved Transaminitis PLAN OF CARE MS floor isolation room empiric abx , continue Rocephin and Azithromycin ( Doxy on back order, unable to order) ID consult per primary discretion , hold on Plaquenil for now BCX 02/09 NGTD influenza swab 02/09 NGT SARS CoV-2 by PCR 02/09 detected , remains in isolation O2 titrate to keep sat above 90% MDI with Albuterol prn ( no HHN while PUI for CoVID) CXR 02/11 -New/increased bilateral basilar infiltrates, since previous exam of 2 days earlier self prone position as tolerating fup with CXR in few days DVT prophylaxis minimally elevated D dimer venous Duplex BLE ECHO with pEF 60% and RVSP of 23 trend ferritin, CRP -11.3 ( trending up), LDH 259 ( about the same) IL-6- 50 BS management: BS monitor : AC and HS on long acting Levemir ( dose increased by attending) and resistant SSI HgA1c>16,repeated 9.2 diabetic diet endo eval as per attending discretion diabetic teaching ( as new onset of DM) check TSH WNL trend LFT-trending down hep panel NGT GI prophayxlis supportive care case discussed and evaluated by supervising physician Willie Upton MD 02/15/20 1630: Subjective Allergies: Coded Allergies: No Known Allergies (Unverified , 02/10/20) Assessment/Plan Assessment/Plan Patient seen and examined with HEATING WORKER, agree with above A&P as it reflects our joint deliberations. Rakel Jerry NP February 15, 2020 08:59 Willie Upton MD February 15, 2020 16:30
[2020-02-15] MEDS ORDERED: Albuterol 90mcg Inhaler 8gm INH PRN (09:00)
[2020-02-15] MEDS: Levemir Flexpen SUBQ SCH (09:03)
[2020-02-15] MEDS: Enoxaparin 40mg Inj SUBQ SCH (09:04)
[2020-02-15 12:00] VITALS: BP 136/75
--- NOTE | 2020-02-15 12:22 | General Progress Note ---
Assessment/Plan Status: stable Assessment/Plan: S: I am ok O: seems comfortable. no chest pain. minimal sob. .PHYSICAL EXAMINATION:HEAD AND NECK: Atraumatic and normocephalic. CHEST: Clear to auscultation.HEART: S1, S2. Regular rate and rhythm. ABDOMEN: Soft. No organomegaly.MUSCULOSKELETAL: No gross focal deficits. NEUROLOGICAL: Patient is awake, alert and oriented x3. LABORATORY DATA: Lab dated February 13 reviewed ASSESSMENT AND PLAN: 1. COVID 19- pneumonia, 2. Diabetes type 2, uncontrolled. 3. Abnormal LFT. 4. Hyponatremia. 5. UTI. 6. GI and DVT prophylaxis. PLAN OF CARE: current management Subjective Allergies: Coded Allergies: No Known Allergies (Unverified , 02/10/20) Objective Last 24 Hour Vital Signs Date Time Temp Pulse Resp B/P (MAP) Pulse Ox O2 Delivery O2 Flow Rate FiO2 02/15/20 09:00 Nasal Cannula 2.0 02/15/20 08:00 99.7 98 20 140/80 (100) 99 02/15/20 04:00 98.4 95 20 148/86 (106) 91 02/15/20 00:00 99.1 83 18 131/72 (91) 94 02/14/20 21:38 99.0 02/14/20 20:12 Nasal Cannula 2.0 02/14/20 20:07 100.4 102 20 148/87 (107) 99 02/14/20 16:00 99.3 94 24 134/75 (94) 93 Intake and Output 02/14/20 02/15/20 19:00 07:00 Intake Total 400 ml 690 ml Balance 400 ml 690 ml Intake Oral 400 ml IV Total 330 ml Other 360 ml # Voids 3 2 Laboratory Tests 02/15/20 05:00: White Blood Count 7.0, Red Blood Count 5.10, Hemoglobin 15.6, Hematocrit 43.4, Mean Corpuscular Volume 85, Mean Corpuscular Hemoglobin 30.6, Mean Corpuscular Hemoglobin Concent 35.9, Red Cell Distribution Width 9.9L, Platelet Count 290, Mean Platelet Volume 8.3, Neutrophils (%) (Auto) 68.4, Lymphocytes (%) (Auto) 14.5L, Monocytes (%) (Auto) 11.9H, Eosinophils (%) (Auto) 4.2H, Basophils (%) ( Auto) 1.0, Sodium Level 141, Potassium Level 3.6, Chloride Level 101, Carbon Dioxide Level 29, Anion Gap 11, Blood Urea Nitrogen 9, Creatinine 0.7, Estimat Glomerular Filtration Rate > 60, Glucose Level 107H, Calcium Level 8.6, Total Bilirubin 0.7, Aspartate Amino Transf (AST/SGOT) 51H, Alanine Aminotransferase ( ALT/SGPT) 97H, Alkaline Phosphatase 94, Total Protein 7.3, Albumin 2.4L, Globulin 4.9, Albumin/Globulin Ratio 0.5L Height (Feet): 5 Height (Inches): 5.00 Weight (Pounds): 181 Myla Vargas MD February 15, 2020 12:22
--- NOTE | 2020-02-15 13:58 | NUR ---
CASE MANAGEMENT: REVIEW 02/15/2020 SI:PNA. COVID (+) T 99.7 HR 98 RR 20 B/P 140/80 SATS 99% ON 2L/NC LABS: GLU 107 AST 51 ALT 97 IS:LEVEMIR SUBQ QD INSULIN ASPART SUBQ AC/HS AZITHROMYCIN IV Q24H CEFTRIAXONE IV Q24H MED/SURG PLAN OF CARE: VENOUS DUPLEX
[2020-02-15 16:00] VITALS: BP 130/80
--- NOTE | 2020-02-15 19:23 | Cardiology Progress Note ---
Assessment/Plan Assessment/Plan 1. Sinus tachycardia, due to hypoxemia, resolved, continue IV hydration, not wishing to use AV dwayne agent at this point. Echo reveals normal LV function with LVEF ~60%. Start low dose cardizem. 2. Hyponatremia, resolved. 3. Acute respiratory failure due to COVID-19, resolved now on NC oxygen. 4. New onset DM, on insulin. Subjective Subjective No cardiac events noted. Denies chest pain or SOB. Objective Last 24 Hour Vital Signs Date Time Temp Pulse Resp B/P (MAP) Pulse Ox O2 Delivery O2 Flow Rate FiO2 02/15/20 16:00 98.9 87 19 130/80 (97) 95 02/15/20 12:00 98.8 97 20 136/75 (95) 98 02/15/20 09:00 Nasal Cannula 2.0 02/15/20 08:00 99.7 98 20 140/80 (100) 99 02/15/20 04:00 98.4 95 20 148/86 (106) 91 02/15/20 00:00 99.1 83 18 131/72 (91) 94 02/14/20 21:38 99.0 02/14/20 20:12 Nasal Cannula 2.0 02/14/20 20:07 100.4 102 20 148/87 (107) 99 Intake and Output 02/14/20 02/15/20 19:00 07:00 Intake Total 400 ml 690 ml Balance 400 ml 690 ml Intake Oral 400 ml IV Total 330 ml Other 360 ml # Voids 3 2 2D Echo: LVEF 60%, Grade I LVDD, RVSP 23 mmHg Laboratory Tests Test 02/15/20 05:00 White Blood Count 7.0 K/UL (4.8-10.8) Red Blood Count 5.10 M/UL (4.70-6.10) Hemoglobin 15.6 G/DL (14.2-18.0) Hematocrit 43.4 % (42.0-52.0) Mean Corpuscular Volume 85 FL (80-99) Mean Corpuscular Hemoglobin 30.6 PG (27.0-31.0) Mean Corpuscular Hemoglobin Concent 35.9 G/DL (32.0-36.0) Red Cell Distribution Width 9.9 % (11.6-14.8) L Platelet Count 290 K/UL (150-450) Mean Platelet Volume 8.3 FL (6.5-10.1) Neutrophils (%) (Auto) 68.4 % (45.0-75.0) Lymphocytes (%) (Auto) 14.5 % (20.0-45.0) L Monocytes (%) (Auto) 11.9 % (1.0-10.0) H Eosinophils (%) (Auto) 4.2 % (0.0-3.0) H Basophils (%) (Auto) 1.0 % (0.0-2.0) Sodium Level 141 MMOL/L (136-145) Potassium Level 3.6 MMOL/L (3.5-5.1) Chloride Level 101 MMOL/L (98-107) Carbon Dioxide Level 29 MMOL/L (21-32) Anion Gap 11 mmol/L (5-15) Blood Urea Nitrogen 9 mg/dL (7-18) Creatinine 0.7 MG/DL (0.55-1.30) Estimat Glomerular Filtration Rate > 60 mL/min (>60) Glucose Level 107 MG/DL (74-106) H Calcium Level 8.6 MG/DL (8.5-10.1) Total Bilirubin 0.7 MG/DL (0.2-1.0) Aspartate Amino Transf (AST/SGOT) 51 U/L (15-37) H Alanine Aminotransferase (ALT/SGPT) 97 U/L (12-78) H Alkaline Phosphatase 94 U/L (46-116) Total Protein 7.3 G/DL (6.4-8.2) Albumin 2.4 G/DL (3.4-5.0) L Globulin 4.9 g/dL Albumin/Globulin Ratio 0.5 (1.0-2.7) L Objective HEENT: Atraumatic and normocephalic. Anicteric. Pupils are equal, round, and reactive to light and accommodation. Extraocular muscles intact. NECK: JVP less than 5 cm. No carotid bruit. Carotid upstrokes 2+ bilaterally. CARDIOVASCULAR: Normal S1, S2. No murmurs, gallops, or rubs. LUNGS: Bibasilar crackles. ABDOMEN: Soft, nontender, and nondistended. No hepatosplenomegaly. Positive bowel sounds. EXTREMITIES: No evidence of edema, clubbing, or cyanosis. Devyn Mina MD February 15, 2020 19:23
--- NOTE | 2020-02-15 19:48 | NUR ---
HAND-OFF: Report given to Marti DEVLIN.
--- NOTE | 2020-02-15 19:55 | NUR ---
NURSE NOTES: Patient is in bed, awake and alert x4. On nasal cannula 2L, with no signs of distress or SOB. Bed locked and in lowest position with call light in easy reach. Will continue to monitor the patient.
[2020-02-15 20:00] VITALS: BP 146/87
[2020-02-15] MEDS: Azithromycin 500 MG in NS 275 ML IV SCH (21:25)
[2020-02-15] MEDS: dilTIAZem HCl 30mg tab ORAL SCH (21:40)
[2020-02-15] MEDS: cefTRIAXone 1gm/D5W 55ml IVPB SCH ×2 (23:14)
[2020-02-16] VITALS: BP 138/82
[2020-02-16 04:00] VITALS: BP 131/80
[2020-02-16] MEDS: NovoLOG Insulin Flexpen SUBQ SCH ×4 (06:18→22:03)
[2020-02-16 06:29] LABS: BASOPHILS % (AUTO) 1.1 % (0.0-2.0); EOSINOPHILS % (AUTO) 4.6 % (0.0-3.0); HEMATOCRIT 41.7 % (42.0-52.0); HEMOGLOBIN 14.9 G/DL (14.2-18.0); LYMPHOCYTES % (AUTO) 15.6 % (20.0-45.0); MEAN CORPUSCULAR VOLUME 85 FL (80-99); MONOCYTES % (AUTO) 11.9 % (1.0-10.0); NEUTROPHILS % (AUTO) 66.8 % (45.0-75.0); PLATELET COUNT 364 K/UL (150-450); RED CELL DISTRIBUTION WIDTH 9.9 % (11.6-14.8); WHITE BLOOD COUNT 6.4 K/UL (4.8-10.8)
[2020-02-16 07:10] LABS: ALANINE AMINOTRANSFERASE 105 U/L (12-78); ALBUMIN 2.2 G/DL (3.4-5.0); ALBUMIN/GLOBULIN RATIO 0.4 (1.0-2.7); ALKALINE PHOSPHATASE 95 U/L (46-116); ANION GAP 8 mmol/L (5-15); ASPARTATE AMINO TRANSFERASE 49 U/L (15-37); BILIRUBIN,TOTAL 0.6 MG/DL (0.2-1.0); BLOOD UREA NITROGEN 7 mg/dL (7-18); CALCIUM 8.5 MG/DL (8.5-10.1); CARBON DIOXIDE 30 MMOL/L (21-32); CHLORIDE 101 MMOL/L (98-107); CREATININE 0.7 MG/DL (0.55-1.30); POTASSIUM 3.7 MMOL/L (3.5-5.1); SODIUM 139 MMOL/L (136-145)
--- NOTE | 2020-02-16 07:33 | NUR ---
HAND-OFF: Report given to QUITA Stoner.
--- NOTE | 2020-02-16 07:59 | NUR ---
NURSE NOTES: Patient alert and oriented,respirations unlabored.Patient sitting up in bed and eating breakfast.Call light within reach.
[2020-02-16 08:00] VITALS: BP 135/81
--- NOTE | 2020-02-16 08:05 | Pulmonology Progress Note ---
Rakel Jerry FAMILY DAY CARE PROVIDER 02/16/20 0805: Subjective Allergies: Coded Allergies: No Known Allergies (Unverified , 02/10/20) Subjective no leukocytosis, + lymphopenia still low grade night fevers on O2 via NC, no signs of resp distress COVID02/09 detected, remains in isolation ST resolved , likely was due to fever BS stable with insulin therapy ( Levemir dose increased) Objective Last 24 Hour Vital Signs Date Time Temp Pulse Resp B/P (MAP) Pulse Ox O2 Delivery O2 Flow Rate FiO2 02/16/20 04:00 98.5 84 18 131/80 (97) 95 02/16/20 00:00 99.0 88 18 138/82 (100) 96 02/15/20 21:40 92 146/87 02/15/20 21:00 Nasal Cannula 2.0 02/15/20 20:00 99.7 92 18 146/87 (106) 97 02/15/20 16:00 98.9 87 19 130/80 (97) 95 02/15/20 12:00 98.8 97 20 136/75 (95) 98 02/15/20 09:00 Nasal Cannula 2.0 Intake and Output 02/15/20 02/16/20 19:00 07:00 # Voids 2 Objective General Appearance: no apparent distress, alert, awake, responsive Lines, tubes and drains: peripheral HEENT: normocephalic, atraumatic, anicteric, mucous membranes moist, PERRL Neck: non-tender, supple, limited range of motion Respiratory/Chest: chest wall non-tender, no respiratory distress, no accessory muscle use, decreased breath sounds, on O2 via NC Cardiovascular/Chest: normal peripheral pulses, normal rate, regular rhythm Abdomen: normal bowel sounds, non tender, soft Extremities: normal range of motion, non-tender, no calf tenderness, normal capillary refill Skin Exam: normal pigmentation, warm/dry Neurologic: special systems technician II-XII grossly normal, no motor/sensory deficits, alert, oriented x 3, responsive Musculoskeletal: normal muscle bulk Laboratory Tests 02/16/20 05:40: White Blood Count 6.4, Red Blood Count 4.90, Hemoglobin 14.9, Hematocrit 41.7L, Mean Corpuscular Volume 85, Mean Corpuscular Hemoglobin 30.4, Mean Corpuscular Hemoglobin Concent 35.7, Red Cell Distribution Width 9.9L, Platelet Count 364, Mean Platelet Volume 7.3, Neutrophils (%) (Auto) 66.8, Lymphocytes (%) (Auto) 15.6L, Monocytes (%) (Auto) 11.9H, Eosinophils (%) (Auto) 4.6H, Basophils (%) ( Auto) 1.1, Sodium Level 139, Potassium Level 3.7, Chloride Level 101, Carbon Dioxide Level 30, Anion Gap 8, Blood Urea Nitrogen 7, Creatinine 0.7, Estimat Glomerular Filtration Rate > 60, Glucose Level 136H, Calcium Level 8.5, Total Bilirubin 0.6, Aspartate Amino Transf (AST/SGOT) 49H, Alanine Aminotransferase ( ALT/SGPT) 105H, Alkaline Phosphatase 95, Total Protein 7.3, Albumin 2.2L, Globulin 5.1, Albumin/Globulin Ratio 0.4L Current Medications Medications (Trade) Dose Ordered Sig/Monster Route PRN Reason Start Time Stop Time Status Last Admin Dose Admin Acetaminophen (Tylenol) 500 mg Q4H PRN ORAL Mild Pain (Pain Scale 1-3) 02/14/20 09:41 03/15/20 09:40 Acetaminophen (Tylenol) 650 mg Q4H PRN RECTAL Mild Pain (Pain Scale 1-3) 02/14/20 09:45 03/12/20 00:14 Acetaminophen (Tylenol) 650 mg Q6H PRN ORAL Temp >100.5 02/13/20 16:45 03/14/20 16:44 02/14/20 21:08 Albuterol Sulfate (Proventil MDI) 2 puff Q4H PRN INH Shortness of Breath 02/15/20 09:00 05/15/20 08:59 Azithromycin 500 mg/Sodium Chloride 275 ml @ 275 mls/hr Q24H IV 02/12/20 21:00 02/17/20 20:59 02/15/20 21:25 Ceftriaxone Sodium 1 gm/ Dextrose 55 ml @ 110 mls/hr Q24H IVPB 02/12/20 22:00 02/19/20 21:59 02/15/20 23:14 Dextrose (Dextrose 50%) 25 ml Q30M PRN IV Hypoglycemia 02/11/20 00:15 05/11/20 00:14 Dextrose (Dextrose 50%) 50 ml Q30M PRN IV Hypoglycemia 02/11/20 00:15 05/11/20 00:14 Diltiazem HCl (Cardizem) 30 mg BID ORAL 02/15/20 19:30 03/16/20 19:29 02/15/20 21:40 Enoxaparin Sodium (Lovenox) 40 mg Q24H SUBQ 02/11/20 09:00 05/11/20 08:59 02/15/20 09:04 Insulin Aspart (NovoLOG) BEFORE MEALS AND HS SUBQ 02/11/20 11:30 05/11/20 11:29 02/16/20 06:18 Insulin Detemir (Levemir) 20 units DAILY SUBQ 02/12/20 09:00 05/11/20 10:59 02/15/20 09:03 Lorazepam (Ativan 2mg/ml 1ml) 0.5 mg Q4H PRN IV For Anxiety 02/11/20 00:15 02/18/20 00:14 Morphine Sulfate (Morphine Sulfate) 2 mg EVERY 6 HOURS PRN IVP Moderate Pain (Pain Scale 4-6) 02/11/20 00:15 02/18/20 00:14 Ondansetron HCl (Zofran) 4 mg Q6H PRN IVP Nausea & Vomiting 02/11/20 00:15 03/12/20 00:14 Pantoprazole (Protonix) 40 mg DAILY ORAL 02/11/20 09:00 03/12/20 08:59 02/15/20 09:02 Polyethylene Glycol (Miralax) 17 gm HSPRN PRN ORAL Constipation 02/11/20 00:15 03/12/20 00:14 Assessment/Plan Assessment/Plan ASSESSMENT Acute hypoxemic respiratory failure/initial -resolved Confirmed COVID-19 infection PNA due to COVID 19 infection New onset of DM with hyperglycemia Sinus tachycardia - resolved Transaminitis PLAN OF CARE MS floor isolation room empiric abx , continue Rocephin and Azithromycin ( Doxy on back order, unable to order) ID consult per primary discretion , hold on Plaquenil for now BCX 5/10 NGTD influenza swab 02/09 NGT SARS CoV-2 by PCR 02/09 detected , remains in isolation repeat SARS CoV-2 by PCR O2 titrate to keep sat above 90% MDI with Albuterol prn ( no HHN while PUI for CoVID) CXR 02/11 -New/increased bilateral basilar infiltrates, since previous exam of 2 days earlier self prone position as tolerating fup with CXR today DVT prophylaxis minimally elevated D dimer venous Duplex BLE ECHO with pEF 60% and RVSP of 23 trend ferritin, CRP -11.3 ( trending up), LDH 259 ( about the same) IL-6- 50 BS management: BS monitor : AC and HS on long acting Levemir ( dose increased by attending) and resistant SSI HgA1c>16,repeated 9.2 diabetic diet endo eval as per attending discretion diabetic teaching ( as new onset of DM) check TSH WNL trend LFT-trending down hep panel NGT GI prophayxlis supportive care case discussed and evaluated by supervising physician Willie Upton MD 02/16/20 2015: Subjective Allergies: Coded Allergies: No Known Allergies (Unverified , 02/10/20) Assessment/Plan Assessment/Plan Patient seen and examined with FAMILY DAY CARE PROVIDER. Agree with above A&P as it reflects our joint deliberations. Rakel Jerry NP February 16, 2020 08:05 Willie Upton MD February 16, 2020 20:15
[2020-02-16] MEDS: dilTIAZem HCl 30mg tab ORAL SCH ×2 (08:28→17:45)
[2020-02-16] MEDS: Levemir Flexpen SUBQ SCH (08:29)
[2020-02-16] MEDS: Enoxaparin 40mg Inj SUBQ SCH (08:30)
[2020-02-16 12:00] VITALS: BP 138/80
--- NOTE | 2020-02-16 12:21 | General Progress Note ---
Assessment/Plan Status: stable Assessment/Plan: S: I am ok O: seems comfortable. no chest pain. minimal sob. .PHYSICAL EXAMINATION:HEAD AND NECK: Atraumatic and normocephalic. CHEST: Clear to auscultation.HEART: S1, S2. Regular rate and rhythm. ABDOMEN: Soft. No organomegaly.MUSCULOSKELETAL: No gross focal deficits. NEUROLOGICAL: Patient is awake, alert and oriented x3. LABORATORY DATA: Lab dated February 14 reviewed ASSESSMENT AND PLAN: 1. COVID 19- pneumonia, 2. Diabetes type 2, uncontrolled. 3. Abnormal LFT. 4. Hyponatremia. 5. UTI. 6. GI and DVT prophylaxis. PLAN OF CARE: current management Subjective Allergies: Coded Allergies: No Known Allergies (Unverified , 02/10/20) Objective Last 24 Hour Vital Signs Date Time Temp Pulse Resp B/P (MAP) Pulse Ox O2 Delivery O2 Flow Rate FiO2 02/16/20 10:37 Nasal Cannula 2.0 02/16/20 08:28 89 128/76 02/16/20 08:00 99.1 94 19 135/81 (99) 95 02/16/20 04:00 98.5 84 18 131/80 (97) 95 02/16/20 00:00 99.0 88 18 138/82 (100) 96 02/15/20 21:40 92 146/87 02/15/20 21:00 Nasal Cannula 2.0 02/15/20 20:00 99.7 92 18 146/87 (106) 97 02/15/20 16:00 98.9 87 19 130/80 (97) 95 Intake and Output 02/15/20 02/16/20 19:00 07:00 # Voids 2 Laboratory Tests 02/16/20 05:40: White Blood Count 6.4, Red Blood Count 4.90, Hemoglobin 14.9, Hematocrit 41.7L, Mean Corpuscular Volume 85, Mean Corpuscular Hemoglobin 30.4, Mean Corpuscular Hemoglobin Concent 35.7, Red Cell Distribution Width 9.9L, Platelet Count 364, Mean Platelet Volume 7.3, Neutrophils (%) (Auto) 66.8, Lymphocytes (%) (Auto) 15.6L, Monocytes (%) (Auto) 11.9H, Eosinophils (%) (Auto) 4.6H, Basophils (%) ( Auto) 1.1, Sodium Level 139, Potassium Level 3.7, Chloride Level 101, Carbon Dioxide Level 30, Anion Gap 8, Blood Urea Nitrogen 7, Creatinine 0.7, Estimat Glomerular Filtration Rate > 60, Glucose Level 136H, Calcium Level 8.5, Total Bilirubin 0.6, Aspartate Amino Transf (AST/SGOT) 49H, Alanine Aminotransferase ( ALT/SGPT) 105H, Alkaline Phosphatase 95, Total Protein 7.3, Albumin 2.2L, Globulin 5.1, Albumin/Globulin Ratio 0.4L Height (Feet): 5 Height (Inches): 5.00 Weight (Pounds): 181 Myla Vargas MD February 16, 2020 12:21
--- NOTE | 2020-02-16 14:19 | Diagnostic Imaging Report ---
EXAM: XR Chest, 1 View CLINICAL HISTORY: Shortness of breath TECHNIQUE: Frontal view of the chest. COMPARISON: CXR 02/12/20. FINDINGS: Lungs: Persistent bibasilar infiltrates, which may represent atelectasis versus pneumonia. Low lung volumes, likely related to shallow inspiration. Increased interstitial markings. Pleural space: Unremarkable. The costophrenic angles are sharp. No visible pneumothorax. Heart: Unremarkable. No cardiomegaly. Mediastinum: Unremarkable. Bones/joints: Unremarkable. IMPRESSION: 1. No significant change in bibasilar infiltrates, which may represent atelectasis versus pneumonia. 2. Low lung volumes, likely related to shallow inspiration. 3. Increased interstitial markings. This is most likely related to bronchovascular crowding from the low lung volumes.
[2020-02-16 16:00] VITALS: BP 156/78
--- NOTE | 2020-02-16 18:54 | NUR ---
NURSE NOTES: Patient resting,respirations unlabored,patient state no concerns at this time.Call light within reach.
--- NOTE | 2020-02-16 18:55 | NUR ---
NURSE NOTES: Patient resting patient state no concerns at this time.Call light within reach .
--- NOTE | 2020-02-16 19:37 | NUR ---
HAND-OFF: Report given to MICHAEL DEVLIN.
--- NOTE | 2020-02-16 19:45 | NUR ---
NURSE NOTES: The Patient is alert and oriented x4 and cooperative with his care with respirations even and unlabored. He can walk to the restroom without any difficulties.Call light within reach. will continue to monitor
[2020-02-16 20:00] VITALS: BP_SYST 107; BP_SYST 135; BP_DIAS 71; BP_DIAS 81
[2020-02-16] MEDS: Azithromycin 500 MG in NS 275 ML IV SCH (22:01)
[2020-02-16] MEDS: cefTRIAXone 1gm/D5W 55ml IVPB SCH ×2 (23:01)
--- NOTE | 2020-02-16 23:43 | Cardiology Progress Note ---
Assessment/Plan Assessment/Plan 1. Sinus tachycardia, due to hypoxemia, resolved, continue IV hydration, not wishing to use AV dwayne agent at this point. Echo reveals normal LV function with LVEF ~60%. Continue cardizem. 2. Hyponatremia, resolved. 3. Acute respiratory failure due to COVID-19, resolved now on [place] oxygen. 4. New onset DM, on insulin. Subjective Subjective No cardiac events noted. Denies chest pain or SOB. Objective Last 24 Hour Vital Signs Date Time Temp Pulse Resp B/P (MAP) Pulse Ox O2 Delivery O2 Flow Rate FiO2 02/16/20 21:00 Nasal Cannula 2.0 02/16/20 20:00 99.1 92 19 135/81 (99) 97 02/16/20 17:45 84 132/81 02/16/20 16:00 98.6 85 19 156/78 (104) 93 02/16/20 12:00 99.0 83 18 138/80 (99) 96 02/16/20 10:37 Nasal Cannula 2.0 02/16/20 08:28 89 128/76 02/16/20 08:00 99.1 94 19 135/81 (99) 95 02/16/20 04:00 98.5 84 18 131/80 (97) 95 02/16/20 00:00 99.0 88 18 138/82 (100) 96 Intake and Output 02/15/20 02/16/20 19:00 07:00 # Voids 2 2D Echo: LVEF 60%, Grade I LVDD, RVSP 23 mmHg Laboratory Tests Test 02/16/20 05:40 White Blood Count 6.4 K/UL (4.8-10.8) Red Blood Count 4.90 M/UL (4.70-6.10) Hemoglobin 14.9 G/DL (14.2-18.0) Hematocrit 41.7 % (42.0-52.0) L Mean Corpuscular Volume 85 FL (80-99) Mean Corpuscular Hemoglobin 30.4 PG (27.0-31.0) Mean Corpuscular Hemoglobin Concent 35.7 G/DL (32.0-36.0) Red Cell Distribution Width 9.9 % (11.6-14.8) L Platelet Count 364 K/UL (150-450) Mean Platelet Volume 7.3 FL (6.5-10.1) Neutrophils (%) (Auto) 66.8 % (45.0-75.0) Lymphocytes (%) (Auto) 15.6 % (20.0-45.0) L Monocytes (%) (Auto) 11.9 % (1.0-10.0) H Eosinophils (%) (Auto) 4.6 % (0.0-3.0) H Basophils (%) (Auto) 1.1 % (0.0-2.0) Sodium Level 139 MMOL/L (136-145) Potassium Level 3.7 MMOL/L (3.5-5.1) Chloride Level 101 MMOL/L (98-107) Carbon Dioxide Level 30 MMOL/L (21-32) Anion Gap 8 mmol/L (5-15) Blood Urea Nitrogen 7 mg/dL (7-18) Creatinine 0.7 MG/DL (0.55-1.30) Estimat Glomerular Filtration Rate > 60 mL/min (>60) Glucose Level 136 MG/DL (74-106) H Calcium Level 8.5 MG/DL (8.5-10.1) Total Bilirubin 0.6 MG/DL (0.2-1.0) Aspartate Amino Transf (AST/SGOT) 49 U/L (15-37) H Alanine Aminotransferase (ALT/SGPT) 105 U/L (12-78) H Alkaline Phosphatase 95 U/L (46-116) Total Protein 7.3 G/DL (6.4-8.2) Albumin 2.2 G/DL (3.4-5.0) L Globulin 5.1 g/dL Albumin/Globulin Ratio 0.4 (1.0-2.7) L Objective HEENT: Atraumatic and normocephalic. Anicteric. Pupils are equal, round, and reactive to light and accommodation. Extraocular muscles intact. NECK: JVP less than 5 cm. No carotid bruit. Carotid upstrokes 2+ bilaterally. CARDIOVASCULAR: Normal S1, S2. No murmurs, gallops, or rubs. LUNGS: Bibasilar crackles. ABDOMEN: Soft, nontender, and nondistended. No hepatosplenomegaly. Positive bowel sounds. EXTREMITIES: No evidence of edema, clubbing, or cyanosis. Devyn Mina MD February 16, 2020 23:43
[2020-02-17] VITALS: BP 124/73
[2020-02-17 04:00] VITALS: BP 127/75
--- NOTE | 2020-02-17 05:30 | NUR ---
NURSE NOTES: The patient is calm, awake and stable with his care. He is able to use the restroom without assistance.The Resp is even and unlabored and the bilateral lung sounds all cleared. The is no fever noted. IV on the RFA saline log is patent . Continue antibiotics Zithromax and Rocephin well tolerated. will continue to monitor
[2020-02-17] MEDS: NovoLOG Insulin Flexpen SUBQ SCH ×4 (06:23→21:48)
--- NOTE | 2020-02-17 07:15 | NUR ---
HAND-OFF: Report given to Georgiana DEVLIN.
[2020-02-17 07:26] LABS: BASOPHILS % (AUTO) 0.9 % (0.0-2.0); EOSINOPHILS % (AUTO) 5.9 % (0.0-3.0); HEMATOCRIT 41.6 % (42.0-52.0); HEMOGLOBIN 14.7 G/DL (14.2-18.0); LYMPHOCYTES % (AUTO) 19.6 % (20.0-45.0); MEAN CORPUSCULAR VOLUME 85 FL (80-99); MONOCYTES % (AUTO) 9.4 % (1.0-10.0); NEUTROPHILS % (AUTO) 64.3 % (45.0-75.0); PLATELET COUNT 413 K/UL (150-450); RED BLOOD COUNT 4.92 M/UL (4.70-6.10); RED CELL DISTRIBUTION WIDTH 9.9 % (11.6-14.8); WHITE BLOOD COUNT 6.6 K/UL (4.8-10.8)
[2020-02-17 07:34] LABS: ALANINE AMINOTRANSFERASE 138 U/L (12-78); ALBUMIN 2.2 G/DL (3.4-5.0); ALBUMIN/GLOBULIN RATIO 0.4 (1.0-2.7); ALKALINE PHOSPHATASE 111 U/L (46-116); ANION GAP 7 mmol/L (5-15); ASPARTATE AMINO TRANSFERASE 71 U/L (15-37); BILIRUBIN,TOTAL 0.4 MG/DL (0.2-1.0); BLOOD UREA NITROGEN 7 mg/dL (7-18); CALCIUM 8.7 MG/DL (8.5-10.1); CARBON DIOXIDE 30 MMOL/L (21-32); CHLORIDE 103 MMOL/L (98-107); CREATININE 0.7 MG/DL (0.55-1.30); SODIUM 140 MMOL/L (136-145)
[2020-02-17 08:00] VITALS: BP 136/86
--- NOTE | 2020-02-17 08:00 | NUR ---
NURSE NOTES: Patient awake and alert and oriented,respirations unlabored. Patient ate breakfast,02 on room air,will monitor.No complaints of SOB.Call light within reach.
[2020-02-17] MEDS: dilTIAZem HCl 30mg tab ORAL SCH ×2 (08:37→17:50)
[2020-02-17] MEDS: Enoxaparin 40mg Inj SUBQ SCH (08:41)
[2020-02-17] MEDS: Levemir Flexpen SUBQ SCH (08:51)
--- NOTE | 2020-02-17 09:31 | Pulmonology Progress Note ---
Rakel Jerry MBA INTERN 02/17/20 0931: Subjective Allergies: Coded Allergies: No Known Allergies (Unverified , 02/10/20) Subjective no leukocytosis, + lymphopenia low grade night fevers resolved on O2 via NC, no signs of resp distress COVID/ detected, remains in isolation another COVID [address] resolved , likely was due to fever BS stable with insulin therapy ( Levemir dose increased) Objective Last 24 Hour Vital Signs Date Time Temp Pulse Resp B/P (MAP) Pulse Ox O2 Delivery O2 Flow Rate FiO2 02/17/20 09:12 Nasal Cannula 2.0 02/17/20 08:37 90 136/86 02/17/20 08:00 98.4 90 19 136/86 (103) 93 02/17/20 04:00 98.4 81 18 127/75 (92) 94 02/17/20 00:00 97.6 80 18 124/73 (90) 94 02/16/20 21:00 Nasal Cannula 2.0 02/16/20 20:00 95 Nasal Cannula 2.0 28 02/16/20 20:00 99.1 92 19 135/81 (99) 97 02/16/20 17:45 84 132/81 02/16/20 16:00 98.6 85 19 156/78 (104) 93 02/16/20 12:00 99.0 83 18 138/80 (99) 96 02/16/20 10:37 Nasal Cannula 2.0 Intake and Output 02/16/20 02/17/20 19:00 07:00 Intake Total 330 ml Balance 330 ml IV Total 330 ml # Voids 2 Objective General Appearance: no apparent distress, alert, awake, responsive Lines, tubes and drains: peripheral HEENT: normocephalic, atraumatic, anicteric, mucous membranes moist, PERRL Neck: non-tender, supple, limited range of motion Respiratory/Chest: chest wall non-tender, no respiratory distress, no accessory muscle use, decreased breath sounds, on O2 via NC Cardiovascular/Chest: normal peripheral pulses, normal rate, regular rhythm Abdomen: normal bowel sounds, non tender, soft Extremities: normal range of motion, non-tender, no calf tenderness, normal capillary refill Skin Exam: normal pigmentation, warm/dry Neurologic: colorist dyer II-XII grossly normal, no motor/sensory deficits, alert, oriented x 3, responsive Musculoskeletal: normal muscle bulk Laboratory Tests 02/17/20 05:10: White Blood Count 6.6, Red Blood Count 4.92, Hemoglobin 14.7, Hematocrit 41.6L, Mean Corpuscular Volume 85, Mean Corpuscular Hemoglobin 29.9, Mean Corpuscular Hemoglobin Concent 35.3, Red Cell Distribution Width 9.9L, Platelet Count 413, Mean Platelet Volume 6.6, Neutrophils (%) (Auto) 64.3, Lymphocytes (%) (Auto) 19.6L, Monocytes (%) (Auto) 9.4, Eosinophils (%) (Auto) 5.9H, Basophils (%) ( Auto) 0.9, Sodium Level 140, Potassium Level 4.0, Chloride Level 103, Carbon Dioxide Level 30, Anion Gap 7, Blood Urea Nitrogen 7, Creatinine 0.7, Estimat Glomerular Filtration Rate > 60, Glucose Level 148H, Calcium Level 8.7, Total Bilirubin 0.4, Aspartate Amino Transf (AST/SGOT) 71H, Alanine Aminotransferase ( ALT/SGPT) 138H, Alkaline Phosphatase 111, Total Protein 7.2, Albumin 2.2L, Globulin 5.0, Albumin/Globulin Ratio 0.4L Current Medications Medications (Trade) Dose Ordered Sig/Monster Route PRN Reason Start Time Stop Time Status Last Admin Dose Admin Acetaminophen (Tylenol) 500 mg Q4H PRN ORAL Mild Pain (Pain Scale 1-3) 02/14/20 09:41 03/15/20 09:40 Acetaminophen (Tylenol) 650 mg Q4H PRN RECTAL Mild Pain (Pain Scale 1-3) 02/14/20 09:45 03/12/20 00:14 Acetaminophen (Tylenol) 650 mg Q6H PRN ORAL Temp >100.5 02/13/20 16:45 03/14/20 16:44 02/14/20 21:08 Albuterol Sulfate (Proventil MDI) 2 puff Q4H PRN INH Shortness of Breath 02/15/20 09:00 05/15/20 08:59 Azithromycin 500 mg/Sodium Chloride 275 ml @ 275 mls/hr Q24H IV 02/12/20 21:00 02/17/20 20:59 02/16/20 22:01 Ceftriaxone Sodium 1 gm/ Dextrose 55 ml @ 110 mls/hr Q24H IVPB 02/12/20 22:00 02/19/20 21:59 02/16/20 23:01 Dextrose (Dextrose 50%) 25 ml Q30M PRN IV Hypoglycemia 02/11/20 00:15 05/11/20 00:14 Dextrose (Dextrose 50%) 50 ml Q30M PRN IV Hypoglycemia 02/11/20 00:15 05/11/20 00:14 Diltiazem HCl (Cardizem) 30 mg BID ORAL 02/15/20 19:30 03/16/20 19:29 02/17/20 08:37 Enoxaparin Sodium (Lovenox) 40 mg Q24H SUBQ 02/11/20 09:00 05/11/20 08:59 02/17/20 08:41 Insulin Aspart (NovoLOG) BEFORE MEALS AND HS SUBQ 02/11/20 11:30 05/11/20 11:29 02/17/20 06:23 Insulin Detemir (Levemir) 20 units DAILY SUBQ 02/12/20 09:00 05/11/20 10:59 02/17/20 08:51 Lorazepam (Ativan 2mg/ml 1ml) 0.5 mg Q4H PRN IV For Anxiety 02/11/20 00:15 02/18/20 00:14 Morphine Sulfate (Morphine Sulfate) 2 mg EVERY 6 HOURS PRN IVP Moderate Pain (Pain Scale 4-6) 02/11/20 00:15 02/18/20 00:14 Ondansetron HCl (Zofran) 4 mg Q6H PRN IVP Nausea & Vomiting 02/11/20 00:15 03/12/20 00:14 Pantoprazole (Protonix) 40 mg DAILY ORAL 02/11/20 09:00 03/12/20 08:59 02/17/20 08:38 Polyethylene Glycol (Miralax) 17 gm HSPRN PRN ORAL Constipation 02/11/20 00:15 03/12/20 00:14 Assessment/Plan Assessment/Plan ASSESSMENT Acute hypoxemic respiratory failure/initial -resolved Confirmed COVID-19 infection PNA due to COVID 19 infection New onset of DM with hyperglycemia Sinus tachycardia - resolved Transaminitis PLAN OF CARE MS floor isolation room empiric abx , continue Rocephin and Azithromycin ( Doxy on back order, unable to order) ID consult per primary discretion , hold on Plaquenil for now BCX 02/09 NGTD influenza swab 02/09 NGT SARS CoV-2 by PCR 02/09 detected , remains in isolation repeat SARS CoV-2 by PCR O2 titrate to keep sat above 90% MDI with Albuterol prn ( no HHN while PUI for CoVID) CXR 02/11 -New/increased bilateral basilar infiltrates, since previous exam of 2 days earlier self prone position as tolerating CXR 02/15 - no significant change in bibasilar infiltrates, which may represent atelectasis versus pneumonia. DVT prophylaxis minimally elevated D dimer venous Duplex BLE ECHO with pEF 60% and RVSP of 23 trend ferritin, CRP -11.3 ( trending up), LDH 259 ( about the same) IL-6- 50 BS management: BS monitor : AC and HS on long acting Levemir ( dose increased by attending) and resistant SSI HgA1c>16,repeated 9.2 diabetic diet endo eval as per attending discretion diabetic teaching ( as new onset of DM) check TSH WNL trend LFT-trending down hep panel NGT GI prophayxlis supportive care case discussed and evaluated by supervising physician Willie Upton MD 02/17/20 1523: Subjective Allergies: Coded Allergies: No Known Allergies (Unverified , 02/10/20) Assessment/Plan Assessment/Plan Patient seen and examined with MBA INTERN. Agree with above A&P as it reflects our joint deliberations. Rakel Jerry NP February 17, 2020 09:31 Willie Upton MD February 17, 2020 15:23
[2020-02-17 12:00] VITALS: BP 142/89
[2020-02-17 16:00] VITALS: BP 132/76
--- NOTE | 2020-02-17 18:00 | NUR ---
NURSE NOTES: Patient resting,no complaints at this time,patient sat up in chair today and tolerated.Eating well.Call light within reach.
--- NOTE | 2020-02-17 19:25 | NUR ---
HAND-OFF: Report given to Gaetano RN /Manish RN.
--- NOTE | 2020-02-17 19:27 | NUR ---
HAND-OFF: Report given to Gaetano RN/Manish RN.
--- NOTE | 2020-02-17 19:49 | NUR ---
NURSE NOTES: Received report from Georgiana DEVLIN, the patient is alert oriented x4 and does not seem to be in any distress.The resp is even and unlabored. Will continue monitoring as indicated.
[2020-02-17 20:00] VITALS: BP 137/78
[2020-02-17] MEDS: cefTRIAXone 1gm/D5W 55ml IVPB SCH ×2 (21:48)
--- NOTE | 2020-02-17 22:07 | General Progress Note ---
Assessment/Plan Status: stable Assessment/Plan: S: I am ok O: seems comfortable. no chest pain. minimal sob. .PHYSICAL EXAMINATION:HEAD AND NECK: Atraumatic and normocephalic. CHEST: Clear to auscultation.HEART: S1, S2. Regular rate and rhythm. ABDOMEN: Soft. No organomegaly.MUSCULOSKELETAL: No gross focal deficits. NEUROLOGICAL: Patient is awake, alert and oriented x3. LABORATORY DATA: Lab dated February 15 reviewed ASSESSMENT AND PLAN: 1. COVID 19- pneumonia, 2. Diabetes type 2, uncontrolled. 3. Abnormal LFT. 4. Hyponatremia. 5. UTI. 6. GI and DVT prophylaxis. PLAN OF CARE: current management NOtes from pulmonary reviewed Subjective Allergies: Coded Allergies: No Known Allergies (Unverified , 02/10/20) Objective Last 24 Hour Vital Signs Date Time Temp Pulse Resp B/P (MAP) Pulse Ox O2 Delivery O2 Flow Rate FiO2 02/17/20 20:06 96 Nasal Cannula 2.0 28 02/17/20 20:00 98.2 81 17 137/78 (97) 96 02/17/20 17:50 77 138/78 02/17/20 16:00 98.0 84 18 132/76 (94) 93 02/17/20 12:00 98.1 86 18 142/89 (106) 93 02/17/20 09:12 Nasal Cannula 2.0 02/17/20 08:37 90 136/86 02/17/20 08:00 98.4 90 19 136/86 (103) 93 02/17/20 04:00 98.4 81 18 127/75 (92) 94 02/17/20 00:00 97.6 80 18 124/73 (90) 94 Intake and Output 02/16/20 02/17/20 19:00 07:00 Intake Total 330 ml Balance 330 ml IV Total 330 ml # Voids 2 Laboratory Tests 02/17/20 05:10: White Blood Count 6.6, Red Blood Count 4.92, Hemoglobin 14.7, Hematocrit 41.6L, Mean Corpuscular Volume 85, Mean Corpuscular Hemoglobin 29.9, Mean Corpuscular Hemoglobin Concent 35.3, Red Cell Distribution Width 9.9L, Platelet Count 413, Mean Platelet Volume 6.6, Neutrophils (%) (Auto) 64.3, Lymphocytes (%) (Auto) 19.6L, Monocytes (%) (Auto) 9.4, Eosinophils (%) (Auto) 5.9H, Basophils (%) ( Auto) 0.9, Sodium Level 140, Potassium Level 4.0, Chloride Level 103, Carbon Dioxide Level 30, Anion Gap 7, Blood Urea Nitrogen 7, Creatinine 0.7, Estimat Glomerular Filtration Rate > 60, Glucose Level 148H, Calcium Level 8.7, Total Bilirubin 0.4, Aspartate Amino Transf (AST/SGOT) 71H, Alanine Aminotransferase ( ALT/SGPT) 138H, Alkaline Phosphatase 111, Total Protein 7.2, Albumin 2.2L, Globulin 5.0, Albumin/Globulin Ratio 0.4L Height (Feet): 5 Height (Inches): 5.00 Weight (Pounds): 181 Myla Vargas MD February 17, 2020 22:07
--- NOTE | 2020-02-17 23:13 | Cardiology Progress Note ---
Assessment/Plan Assessment/Plan 1. Sinus tachycardia, due to hypoxemia, resolved, continue IV hydration, not wishing to use AV dwayne agent at this point. Echo reveals normal LV function with LVEF ~60%. Continue cardizem. 2. Hyponatremia, resolved. 3. Acute respiratory failure due to COVID-19, resolved. 4. New onset DM, on insulin. Subjective Subjective No cardiac events noted. Objective Last 24 Hour Vital Signs Date Time Temp Pulse Resp B/P (MAP) Pulse Ox O2 Delivery O2 Flow Rate FiO2 02/17/20 21:00 Nasal Cannula 2.0 02/17/20 20:06 96 Nasal Cannula 2.0 28 02/17/20 20:00 98.2 81 17 137/78 (97) 96 02/17/20 17:50 77 138/78 02/17/20 16:00 98.0 84 18 132/76 (94) 93 02/17/20 12:00 98.1 86 18 142/89 (106) 93 02/17/20 09:12 Nasal Cannula 2.0 02/17/20 08:37 90 136/86 02/17/20 08:00 98.4 90 19 136/86 (103) 93 02/17/20 04:00 98.4 81 18 127/75 (92) 94 02/17/20 00:00 97.6 80 18 124/73 (90) 94 Intake and Output 02/16/20 02/17/20 19:00 07:00 Intake Total 330 ml Balance 330 ml IV Total 330 ml # Voids 2 2D Echo: LVEF 60%, Grade I LVDD, RVSP 23 mmHg Laboratory Tests Test 02/17/20 05:10 White Blood Count 6.6 K/UL (4.8-10.8) Red Blood Count 4.92 M/UL (4.70-6.10) Hemoglobin 14.7 G/DL (14.2-18.0) Hematocrit 41.6 % (42.0-52.0) L Mean Corpuscular Volume 85 FL (80-99) Mean Corpuscular Hemoglobin 29.9 PG (27.0-31.0) Mean Corpuscular Hemoglobin Concent 35.3 G/DL (32.0-36.0) Red Cell Distribution Width 9.9 % (11.6-14.8) L Platelet Count 413 K/UL (150-450) Mean Platelet Volume 6.6 FL (6.5-10.1) Neutrophils (%) (Auto) 64.3 % (45.0-75.0) Lymphocytes (%) (Auto) 19.6 % (20.0-45.0) L Monocytes (%) (Auto) 9.4 % (1.0-10.0) Eosinophils (%) (Auto) 5.9 % (0.0-3.0) H Basophils (%) (Auto) 0.9 % (0.0-2.0) Sodium Level 140 MMOL/L (136-145) Potassium Level 4.0 MMOL/L (3.5-5.1) Chloride Level 103 MMOL/L (98-107) Carbon Dioxide Level 30 MMOL/L (21-32) Anion Gap 7 mmol/L (5-15) Blood Urea Nitrogen 7 mg/dL (7-18) Creatinine 0.7 MG/DL (0.55-1.30) Estimat Glomerular Filtration Rate > 60 mL/min (>60) Glucose Level 148 MG/DL (74-106) H Calcium Level 8.7 MG/DL (8.5-10.1) Total Bilirubin 0.4 MG/DL (0.2-1.0) Aspartate Amino Transf (AST/SGOT) 71 U/L (15-37) H Alanine Aminotransferase (ALT/SGPT) 138 U/L (12-78) H Alkaline Phosphatase 111 U/L (46-116) Total Protein 7.2 G/DL (6.4-8.2) Albumin 2.2 G/DL (3.4-5.0) L Globulin 5.0 g/dL Albumin/Globulin Ratio 0.4 (1.0-2.7) L Objective HEENT: Atraumatic and normocephalic. Anicteric. Pupils are equal, round, and reactive to light and accommodation. Extraocular muscles intact. NECK: JVP less than 5 cm. No carotid bruit. Carotid upstrokes 2+ bilaterally. CARDIOVASCULAR: Normal S1, S2. No murmurs, gallops, or rubs. LUNGS: Bibasilar crackles. ABDOMEN: Soft, nontender, and nondistended. No hepatosplenomegaly. Positive bowel sounds. EXTREMITIES: No evidence of edema, clubbing, or cyanosis. Devyn Mina MD February 17, 2020 23:13
[2020-02-18] VITALS: BP 132/68
[2020-02-18 04:00] VITALS: BP 144/71
[2020-02-18] MEDS: NovoLOG Insulin Flexpen SUBQ SCH ×4 (06:42→20:45)
--- NOTE | 2020-02-18 07:20 | NUR ---
HAND-OFF: Report given to Jensen Townsend RN.
--- NOTE | 2020-02-18 07:25 | NUR ---
NURSE NOTES: Received patient in bed. Awake, A/O x4. On 2 lpm via NC. IV in the Right forearm, site is intact. Patient denies pain at this time. Bed low and locked, call light within reach.
[2020-02-18 08:00] VITALS: BP 138/80
[2020-02-18] MEDS: dilTIAZem HCl 30mg tab ORAL SCH ×2 (08:56→18:11)
[2020-02-18] MEDS: Enoxaparin 40mg Inj SUBQ SCH (09:00)
[2020-02-18] MEDS: Levemir Flexpen SUBQ SCH (09:00)
--- NOTE | 2020-02-18 09:28 | Pulmonology Progress Note ---
Rakel Jerry REFRIGERATION PLANT OPERATOR 02/18/20 0928: Subjective Allergies: Coded Allergies: No Known Allergies (Unverified , 02/10/20) Subjective no leukocytosis, + lymphopenia low grade night fevers resolved on O2 via NC, no signs of resp distress COVID5/ detected, remains in isolation another COVID [address] resolved , likely was due to fever BS stable with insulin therapy ( Levemir dose increased) Objective Last 24 Hour Vital Signs Date Time Temp Pulse Resp B/P (MAP) Pulse Ox O2 Delivery O2 Flow Rate FiO2 02/18/20 08:56 92 138/80 02/18/20 04:00 98.1 84 17 144/71 (95) 94 02/18/20 00:00 98.2 84 19 132/68 (89) 96 02/17/20 21:00 Nasal Cannula 2.0 02/17/20 20:06 96 Nasal Cannula 2.0 28 02/17/20 20:00 98.2 81 17 137/78 (97) 96 02/17/20 17:50 77 138/78 02/17/20 16:00 98.0 84 18 132/76 (94) 93 02/17/20 12:00 98.1 86 18 142/89 (106) 93 Intake and Output 02/17/20 02/18/20 19:00 07:00 Intake Total 1600 ml Balance 1600 ml Intake Oral 400 ml Other 1200 ml # Voids 3 Objective General Appearance: no apparent distress, alert, awake, responsive Lines, tubes and drains: peripheral IV line HEENT: normocephalic, atraumatic, anicteric, mucous membranes moist, PERRL Neck: non-tender, supple, limited range of motion Respiratory/Chest: chest wall non-tender, no respiratory distress, no accessory muscle use, decreased breath sounds, on O2 via NC Cardiovascular/Chest: normal peripheral pulses, normal rate, regular rhythm Abdomen: normal bowel sounds, non tender, soft Extremities: normal range of motion, non-tender, no calf tenderness, normal capillary refill Skin Exam: normal pigmentation, warm/dry Neurologic: chief growth officer II-XII grossly normal, no motor/sensory deficits, alert, oriented x 3, responsive Musculoskeletal: normal muscle bulk Current Medications Medications (Trade) Dose Ordered Sig/Monster Route PRN Reason Start Time Stop Time Status Last Admin Dose Admin Acetaminophen (Tylenol) 500 mg Q4H PRN ORAL Mild Pain (Pain Scale 1-3) 02/14/20 09:41 03/15/20 09:40 Acetaminophen (Tylenol) 650 mg Q4H PRN RECTAL Mild Pain (Pain Scale 1-3) 02/14/20 09:45 03/12/20 00:14 Acetaminophen (Tylenol) 650 mg Q6H PRN ORAL Temp >100.5 02/13/20 16:45 03/14/20 16:44 02/14/20 21:08 Albuterol Sulfate (Proventil MDI) 2 puff Q4H PRN INH Shortness of Breath 02/15/20 09:00 05/15/20 08:59 Ceftriaxone Sodium 1 gm/ Dextrose 55 ml @ 110 mls/hr Q24H IVPB 02/12/20 22:00 02/19/20 21:59 02/17/20 21:48 Dextrose (Dextrose 50%) 25 ml Q30M PRN IV Hypoglycemia 02/11/20 00:15 05/11/20 00:14 Dextrose (Dextrose 50%) 50 ml Q30M PRN IV Hypoglycemia 02/11/20 00:15 05/11/20 00:14 Diltiazem HCl (Cardizem) 30 mg BID ORAL 02/15/20 19:30 03/16/20 19:29 02/18/20 08:56 Enoxaparin Sodium (Lovenox) 40 mg Q24H SUBQ 02/11/20 09:00 05/11/20 08:59 02/17/20 08:41 Insulin Aspart (NovoLOG) BEFORE MEALS AND HS SUBQ 02/11/20 11:30 05/11/20 11:29 02/18/20 06:42 Insulin Detemir (Levemir) 20 units DAILY SUBQ 02/12/20 09:00 05/11/20 10:59 02/17/20 08:51 Ondansetron HCl (Zofran) 4 mg Q6H PRN IVP Nausea & Vomiting 02/11/20 00:15 03/12/20 00:14 Pantoprazole (Protonix) 40 mg DAILY ORAL 02/11/20 09:00 03/12/20 08:59 02/18/20 08:56 Polyethylene Glycol (Miralax) 17 gm HSPRN PRN ORAL Constipation 02/11/20 00:15 03/12/20 00:14 Assessment/Plan Assessment/Plan ASSESSMENT Acute hypoxemic respiratory failure/initial -resolved Confirmed COVID-19 infection PNA due to COVID 19 infection New onset of DM with hyperglycemia Sinus tachycardia - resolved Transaminitis PLAN OF CARE MS floor isolation room empiric abx , continue Rocephin and Azithromycin ( Doxy on back order, unable to order) ID consult per primary discretion , hold on Plaquenil for now BCX 02/09 NGTD influenza swab 02/09 NGT SARS CoV-2 by PCR 02/09 detected , remains in isolation repeat SARS CoV-2 by PCR02/15 pending O2 titrate to keep sat above 90% MDI with Albuterol prn ( no HHN while PUI for CoVID) CXR 02/11 -New/increased bilateral basilar infiltrates, since previous exam of 2 days earlier self prone position as tolerating CXR 02/15 - no significant change in bibasilar infiltrates, which may represent atelectasis versus pneumonia. DVT prophylaxis minimally elevated D dimer venous Duplex BLE ECHO with pEF 60% and RVSP of 23 trend ferritin, CRP -11.3 ( trending up), LDH 259 ( about the same) IL-6- 50 repeat CRP BS management: BS monitor : AC and HS on long acting Levemir ( dose increased by attending) and resistant SSI HgA1c>16,repeated 9.2 diabetic diet endo eval as per attending discretion diabetic teaching ( as new onset of DM) check TSH WNL trend LFT-trending down hep panel NGT GI prophayxlis supportive care case discussed and evaluated by supervising physician Blake Tabares MD 02/18/20 1645: Subjective Allergies: Coded Allergies: No Known Allergies (Unverified , 02/10/20) Assessment/Plan Assessment/Plan Patient seen and examined with REFRIGERATION PLANT OPERATOR. Agree with above A&P as it reflects our joint deliberations. Rakel Jerry NP February 18, 2020 09:28 Blake Tabares MD February 18, 2020 16:45
[2020-02-18 12:00] VITALS: BP 136/82
--- NOTE | 2020-02-18 13:27 | Cardiology Progress Note ---
Assessment/Plan Assessment/Plan 1. Sinus tachycardia, due to hypoxemia, resolved, continue IV hydration, not wishing to use AV dwayne agent at this point. Echo reveals normal LV function with LVEF ~60%. Will optimize cardizem. 2. Hyponatremia, resolved. 3. Acute respiratory failure due to COVID-19, resolved. 4. New onset DM, on insulin. Subjective Subjective No cardiac events noted. No chest pain or SOB reported. Objective Last 24 Hour Vital Signs Date Time Temp Pulse Resp B/P (MAP) Pulse Ox O2 Delivery O2 Flow Rate FiO2 02/18/20 09:00 Nasal Cannula 2.0 02/18/20 08:56 92 138/80 02/18/20 08:00 98.1 92 19 138/80 (99) 96 02/18/20 04:00 98.1 84 17 144/71 (95) 94 02/18/20 00:00 98.2 84 19 132/68 (89) 96 02/17/20 21:00 Nasal Cannula 2.0 02/17/20 20:06 96 Nasal Cannula 2.0 28 02/17/20 20:00 98.2 81 17 137/78 (97) 96 02/17/20 17:50 77 138/78 02/17/20 16:00 98.0 84 18 132/76 (94) 93 Intake and Output 02/17/20 02/18/20 19:00 07:00 Intake Total 1600 ml Balance 1600 ml Intake Oral 400 ml Other 1200 ml # Voids 3 2D Echo: LVEF 60%, Grade I LVDD, RVSP 23 mmHg Objective HEENT: Atraumatic and normocephalic. Anicteric. Pupils are equal, round, and reactive to light and accommodation. Extraocular muscles intact. NECK: JVP less than 5 cm. No carotid bruit. Carotid upstrokes 2+ bilaterally. CARDIOVASCULAR: Normal S1, S2. No murmurs, gallops, or rubs. LUNGS: Bibasilar crackles. ABDOMEN: Soft, nontender, and nondistended. No hepatosplenomegaly. Positive bowel sounds. EXTREMITIES: No evidence of edema, clubbing, or cyanosis. Devyn Mina MD February 18, 2020 13:27
--- NOTE | 2020-02-18 15:09 | General Progress Note ---
Assessment/Plan Status: stable Assessment/Plan: S: I am ok O: seems comfortable. no chest pain. minimal sob. .PHYSICAL EXAMINATION:HEAD AND NECK: Atraumatic and normocephalic. CHEST: Clear to auscultation.HEART: S1, S2. Regular rate and rhythm. ABDOMEN: Soft. No organomegaly.MUSCULOSKELETAL: No gross focal deficits. NEUROLOGICAL: Patient is awake, alert and oriented x3. LABORATORY DATA: Lab dated February 16 reviewed ASSESSMENT AND PLAN: 1. COVID 19- pneumonia, 2. Diabetes type 2, uncontrolled. 3. Abnormal LFT. 4. Hyponatremia. 5. UTI. 6. GI and DVT prophylaxis. PLAN OF CARE: current management NOtes from pulmonary reviewed Subjective Allergies: Coded Allergies: No Known Allergies (Unverified , 02/10/20) Objective Last 24 Hour Vital Signs Date Time Temp Pulse Resp B/P (MAP) Pulse Ox O2 Delivery O2 Flow Rate FiO2 02/18/20 12:00 98.6 96 19 136/82 (100) 97 02/18/20 09:00 Nasal Cannula 2.0 02/18/20 08:56 92 138/80 02/18/20 08:00 98.1 92 19 138/80 (99) 96 02/18/20 04:00 98.1 84 17 144/71 (95) 94 02/18/20 00:00 98.2 84 19 132/68 (89) 96 02/17/20 21:00 Nasal Cannula 2.0 02/17/20 20:06 96 Nasal Cannula 2.0 28 02/17/20 20:00 98.2 81 17 137/78 (97) 96 02/17/20 17:50 77 138/78 02/17/20 16:00 98.0 84 18 132/76 (94) 93 Intake and Output 02/17/20 02/18/20 19:00 07:00 Intake Total 1600 ml Balance 1600 ml Intake Oral 400 ml Other 1200 ml # Voids 3 Height (Feet): 5 Height (Inches): 5.00 Weight (Pounds): 181 Myla Vargas MD February 18, 2020 15:09
--- NOTE | 2020-02-18 15:38 | NUR ---
CASE MANAGEMENT:REVIEW SI;COVID-19 PNEUMONIA. DM (NEW ONSET) 98.6 96 19 144/71 94% 2L NC IS;CARDIZEM PO TID PROVENTIL ING Q4 HRS PRN ROCEPHIN IV Q24 HRS INSULIN LEVEMIR INSULIN NOVOLOG LOVENOX SUBQ Q24 HRS PROTONIX PO QD MED SURG STATUS DCP;PATIENT IS FROM HOME PLAN OF CARE; WEAN O2
[2020-02-18 15:47] VITALS: BP 142/85
--- NOTE | 2020-02-18 19:13 | NUR ---
HAND-OFF: Report given to Danielle DEVLIN.
--- NOTE | 2020-02-18 19:31 | NUR ---
NURSE NOTES: Received patient in bed, awake, alert, oriented x4, able to make his needs known, IV site is clean dry and intact, patient ambulates with steady gate. Call light is within reach, bed is lowered, locked, alarm is on, will continue to monitor for safety and comfort.
[2020-02-18 20:25] VITALS: BP 136/86
[2020-02-18] MEDS: cefTRIAXone 1gm/D5W 55ml IVPB SCH ×2 (21:54)
[2020-02-19] VITALS: BP 129/74
[2020-02-19 04:00] VITALS: BP 128/74
[2020-02-19] MEDS: NovoLOG Insulin Flexpen SUBQ SCH ×2 (05:57→11:32)
--- NOTE | 2020-02-19 07:23 | NUR ---
HAND-OFF: Report given to Marlee DEVLIN.
--- NOTE | 2020-02-19 07:50 | NUR ---
NURSE NOTES: Received patient sitting upright in hospital bed watching TV. Patient is AAO x4, ambulatory, able to make needs known on O2 via NC at 1LPM satting at 98% with no s/s of distress nor c/o of pain at this time. Patient is pending COVID 19 swab result. Has L AC 18g saline lock with no s/s of infiltration. Call light within reach. Patient educated re O2 weaning. NC removed for weaning. O2 Sats will be monitored. Will continue POC. Addendum: 02/19/20 at 0854 by Angelo Camarena RN Error in documentation. Please disregard note.
--- NOTE | 2020-02-19 07:50 | NUR ---
NURSE NOTES: Received patient lying in hospital bed sitting upright watching TV. Patient is AAO x 4, ambulatory, able to make needs known. Patient is on RA satting 98% with no s/s of distress and/or c/o pain noted at this time. Patient is pending COVID 19 swab result. Patient ate breakfast. Pt has 22g saline lock to R forearm with no s/s of infiltration. Call light within reach. Will continue POC.
[2020-02-19 08:00] VITALS: BP 122/77
[2020-02-19] MEDS: dilTIAZem HCl 30mg tab ORAL SCH ×2 (08:30→12:35)
[2020-02-19] MEDS: Enoxaparin 40mg Inj SUBQ SCH (08:31)
[2020-02-19] MEDS: Levemir Flexpen SUBQ SCH (08:40)
--- NOTE | 2020-02-19 08:42 | Pulmonology Progress Note ---
Rakel Jerry SOLAR THERMAL TECHNICIAN 02/19/20 0842: Subjective Allergies: Coded Allergies: No Known Allergies (Unverified , 02/10/20) Subjective no leukocytosis, + lymphopenia low grade night fevers resolved on O2 via NC, no signs of resp distress COVID5/ detected, remains in isolation another COVID 19 02/15 still detected been off O2 x 12 hrs, remains stable ST resolved , likely was due to fever BS stable with insulin therapy ( Levemir dose increased) Objective Last 24 Hour Vital Signs Date Time Temp Pulse Resp B/P (MAP) Pulse Ox O2 Delivery O2 Flow Rate FiO2 02/19/20 08:30 81 122/77 02/19/20 04:00 98.9 78 18 128/74 (92) 98 02/19/20 00:00 98.7 87 18 129/74 (92) 98 02/18/20 21:05 Nasal Cannula 2.0 02/18/20 20:25 98.2 70 22 136/86 (103) 96 02/18/20 20:06 94 Nasal Cannula 2.0 28 02/18/20 18:11 84 142/85 02/18/20 15:47 98.5 84 20 142/85 (104) 94 02/18/20 12:00 98.6 96 19 136/82 (100) 97 02/18/20 09:00 Nasal Cannula 2.0 02/18/20 08:56 92 138/80 Intake and Output 02/18/20 02/19/20 19:00 07:00 Intake Total 1600 ml Balance 1600 ml Intake Oral 1600 ml # Voids 7 Objective General Appearance: no apparent distress, alert, awake, responsive Lines, tubes and drains: peripheral IV line HEENT: normocephalic, atraumatic, anicteric, mucous membranes moist, PERRL Neck: non-tender, supple, limited range of motion Respiratory/Chest: chest wall non-tender, no respiratory distress, no accessory muscle use, decreased breath sounds, on RA Cardiovascular/Chest: normal peripheral pulses, normal rate, regular rhythm Abdomen: normal bowel sounds, non tender, soft Extremities: normal range of motion, non-tender, no calf tenderness, normal capillary refill Skin Exam: normal pigmentation, warm/dry Neurologic: blindmaker II-XII grossly normal, no motor/sensory deficits, alert, oriented x 3, responsive Musculoskeletal: normal muscle bulk Microbiology Date/Time Source Procedure Growth Status 02/16/20 12:25 Nasopharynx Coronavirus COVID-19 PCR ([facility]) - Final Complete Laboratory Tests 02/19/20 04:30: C-Reactive Protein, Quantitative 3.8H Current Medications Medications (Trade) Dose Ordered Sig/Monster Route PRN Reason Start Time Stop Time Status Last Admin Dose Admin Acetaminophen (Tylenol) 500 mg Q4H PRN ORAL Mild Pain (Pain Scale 1-3) 02/14/20 09:41 03/15/20 09:40 Acetaminophen (Tylenol) 650 mg Q4H PRN RECTAL Mild Pain (Pain Scale 1-3) 02/14/20 09:45 03/12/20 00:14 Acetaminophen (Tylenol) 650 mg Q6H PRN ORAL Temp >100.5 02/13/20 16:45 03/14/20 16:44 02/14/20 21:08 Albuterol Sulfate (Proventil MDI) 2 puff Q4H PRN INH Shortness of Breath 02/15/20 09:00 05/15/20 08:59 Ceftriaxone Sodium 1 gm/ Dextrose 55 ml @ 110 mls/hr Q24H IVPB 02/12/20 22:00 02/19/20 21:59 02/18/20 21:54 Dextrose (Dextrose 50%) 25 ml Q30M PRN IV Hypoglycemia 02/11/20 00:15 05/11/20 00:14 Dextrose (Dextrose 50%) 50 ml Q30M PRN IV Hypoglycemia 02/11/20 00:15 05/11/20 00:14 Diltiazem HCl (Cardizem) 30 mg TID ORAL 02/18/20 18:00 03/19/20 17:59 02/19/20 08:30 Enoxaparin Sodium (Lovenox) 40 mg Q24H SUBQ 02/11/20 09:00 05/11/20 08:59 02/19/20 08:31 Insulin Aspart (NovoLOG) BEFORE MEALS AND HS SUBQ 02/11/20 11:30 05/11/20 11:29 02/19/20 05:57 Insulin Detemir (Levemir) 20 units DAILY SUBQ 02/12/20 09:00 05/11/20 10:59 02/18/20 09:00 Ondansetron HCl (Zofran) 4 mg Q6H PRN IVP Nausea & Vomiting 02/11/20 00:15 03/12/20 00:14 Pantoprazole (Protonix) 40 mg DAILY ORAL 02/11/20 09:00 03/12/20 08:59 02/19/20 08:30 Polyethylene Glycol (Miralax) 17 gm HSPRN PRN ORAL Constipation 02/11/20 00:15 03/12/20 00:14 Assessment/Plan Assessment/Plan ASSESSMENT Acute hypoxemic respiratory failure/initial -resolved Confirmed COVID-19 infection PNA due to COVID 19 infection New onset of DM with hyperglycemia Sinus tachycardia - resolved Transaminitis PLAN OF CARE MS floor isolation room empiric abx , continue Rocephin and Azithromycin ( Doxy on back order, unable to order) , completing today ID consult per primary discretion , hold on Plaquenil for now BCX 02/09 NGTD influenza swab 02/09 NGT SARS CoV-2 by PCR 02/09 detected , remains in isolation repeat SARS CoV-2 by PCR02/15 positive as well O2 titrate to keep sat above 90%, now on RA sat stable MDI with Albuterol prn CXR 02/11 -New/increased bilateral basilar infiltrates, since previous exam of 2 days earlier self prone position as tolerating CXR 02/15 - no significant change in bibasilar infiltrates, which may represent atelectasis versus pneumonia. fup with CXR in am DVT prophylaxis minimally elevated D dimer venous Duplex BLE ECHO with pEF 60% and RVSP of 23 trend ferritin, CRP -11.3 ( trending up), LDH 259 ( about the same) IL-6- 50 repeat CRP down to 3.8 BS management: BS monitor : AC and HS on long acting Levemir ( dose increased by attending) and resistant SSI HgA1c>16,repeated 9.2 diabetic diet diabetic teaching ( as new onset of DM) TSH WNL trend LFT hep panel NGT GI prophayxlis supportive care improving, no fevers, on RA sat stable fup with CXR in am lives alone at home probably can dc soon, given clinical improvement, more rthan 7 days from admission, no fevers > 72 hrs w/out antipyretics; continue self -isolation at home for additional week /lives alone case discussed and evaluated by supervising physician Blake Tabares MD 02/19/20 1540: Subjective Allergies: Coded Allergies: No Known Allergies (Unverified , 02/10/20) Assessment/Plan Assessment/Plan Patient seen and examined with SOLAR THERMAL TECHNICIAN. Agree with above A&P as it reflects our joint deliberations. Rakel Jerry SOLAR THERMAL TECHNICIAN February 19, 2020 08:42 Blake Tabares MD February 19, 2020 15:40
--- NOTE | 2020-02-19 09:24 | General Progress Note ---
Assessment/Plan Status: stable Assessment/Plan: S: I am ok O: seems comfortable. no chest pain. minimal sob. .PHYSICAL EXAMINATION:HEAD AND NECK: Atraumatic and normocephalic. CHEST: Clear to auscultation.HEART: S1, S2. Regular rate and rhythm. ABDOMEN: Soft. No organomegaly.MUSCULOSKELETAL: No gross focal deficits. NEUROLOGICAL: Patient is awake, alert and oriented x3. LABORATORY DATA: Lab dated February 17 reviewed ASSESSMENT AND PLAN: 1. COVID 19- pneumonia, 2. Diabetes type 2, uncontrolled. 3. Abnormal LFT. 4. Hyponatremia. 5. UTI. 6. GI and DVT prophylaxis. PLAN OF CARE: current management NOtes from pulmonary reviewed Subjective Allergies: Coded Allergies: No Known Allergies (Unverified , 02/10/20) Objective Last 24 Hour Vital Signs Date Time Temp Pulse Resp B/P (MAP) Pulse Ox O2 Delivery O2 Flow Rate FiO2 02/19/20 08:30 81 122/77 02/19/20 04:00 98.9 78 18 128/74 (92) 98 02/19/20 00:00 98.7 87 18 129/74 (92) 98 02/18/20 21:05 Nasal Cannula 2.0 02/18/20 20:25 98.2 70 22 136/86 (103) 96 02/18/20 20:06 94 Nasal Cannula 2.0 28 02/18/20 18:11 84 142/85 02/18/20 15:47 98.5 84 20 142/85 (104) 94 02/18/20 12:00 98.6 96 19 136/82 (100) 97 Intake and Output 02/18/20 02/19/20 19:00 07:00 Intake Total 1600 ml Balance 1600 ml Intake Oral 1600 ml # Voids 7 Laboratory Tests 02/19/20 04:30: C-Reactive Protein, Quantitative 3.8H Height (Feet): 5 Height (Inches): 5.00 Weight (Pounds): 181 Myla Vargas MD February 19, 2020 09:24
--- NOTE | 2020-02-19 11:26 | NUR ---
RD ASSESSMENT & RECOMMENDATIONS SEE CARE ACTIVITY FOR COMPLETE ASSESSMENT DAILY ESTIMATED NEEDS: Needs based on DM/ 67kg abw 25-30 kcals/kg total kcals 1-1.3 g protein/kg 67-87 g total protein 25-30 mL/kg total fluid mLs NUTRITION DIAGNOSIS: Altered nutrition related lab values R/T diabetes as evidenced by elev BGs, A1C of 9.2, Uglu 4+ upon adm, on long acting and short acting insulin. CURRENT DIET:[facility] MED PO DIET RECOMMENDATIONS: [facility] MED ADDITIONAL RECOMMENDATIONS: * Standing wt for accurate CBW * Monitor BGs closely, for hyper- and hypoglycemia * Monitor for continued good PO intake
[2020-02-19 12:35] VITALS: BP 128/82
--- NOTE | 2020-02-19 12:45 | NUR ---
DIRECTOR MEDICAL AFFAIRS NOTE S/W DR MANDUJANO AND INFORMED HIM PATIENT IS SELF PAY. HE WILL WRITE SCRIPT FOR INSULIN FOR 1 MONTH OUTPATIENT [facility] INFORMATION PROVIDED TO PATIENT FOR OUTPATIENT MEDICAL SERVICES. S/W PATIENT VIA PHONE AND INFORMED OF OUTPATIENT RESOURCES THAT WILL BE PROVIDED BY RN AND ENCOURAGED TO FOLLOW UP IN OUTPATIENT CLINIC REGARDING NEW DM DIAGNOSIS. VERBALIZED UNDERSTANDING.
[2020-02-19] MEDS ORDERED: LEVEMIR FL100 UNIT/1 SUBQ (12:51)
[2020-02-19] MEDS ORDERED: CARDIZEM30 MG ORAL (12:51)
--- NOTE | 2020-02-19 14:14 | NUR ---
NURSE NOTES: Patient DC'd to home under self-care in stable condition with protocol of 14-day self-isolation due to COVID-19 positive. DC packet with Rx and educational handouts for, COVID-19, pneumonia, and DM provided. Also provided information for f/u care at [facility]. Patient verbalized understanding of information provided and states that he will pick-up medication today prior to going home as per CM patient is safe to go home via public transportation following masking guidelines while outside. All belongings verified and accounted for with patient. Patient denied SOB, c/o pain, cough and/or wheezing. Peripheral IV on R forearm removed. No s/s of infection. Pressure dressing replied. Skin intact with no s/s of breakdown.
--- NOTE | 2020-02-19 18:51 | Cardiology Progress Note ---
Assessment/Plan Assessment/Plan 1. Sinus tachycardia, due to hypoxemia, resolved, continue IV hydration, not wishing to use AV dwayne agent at this point. Echo reveals normal LV function with LVEF ~60%. Will optimize cardizem. 2. Hyponatremia, resolved. 3. Acute respiratory failure due to COVID-19, resolved, CRP improvement noted. 4. New onset DM. Subjective Subjective No cardiac events noted. Objective Last 24 Hour Vital Signs Date Time Temp Pulse Resp B/P (MAP) Pulse Ox O2 Delivery O2 Flow Rate FiO2 02/19/20 12:35 82 128/82 02/19/20 09:00 Nasal Cannula 2.0 02/19/20 08:30 81 122/77 02/19/20 08:00 98.8 81 18 122/77 (92) 98 02/19/20 04:00 98.9 78 18 128/74 (92) 98 02/19/20 00:00 98.7 87 18 129/74 (92) 98 02/18/20 21:05 Nasal Cannula 2.0 02/18/20 20:25 98.2 70 22 136/86 (103) 96 02/18/20 20:06 94 Nasal Cannula 2.0 28 Intake and Output 02/18/20 02/19/20 19:00 07:00 Intake Total 1600 ml Balance 1600 ml Intake Oral 1600 ml # Voids 7 2D Echo: LVEF 60%, Grade I LVDD, RVSP 23 mmHg Laboratory Tests Test 02/19/20 04:30 C-Reactive Protein, Quantitative 3.8 mg/dL (0.00-0.90) H Time of this note does not reflect time of patient's encounter. Objective HEENT: Atraumatic and normocephalic. Anicteric. Pupils are equal, round, and reactive to light and accommodation. Extraocular muscles intact. NECK: JVP less than 5 cm. No carotid bruit. Carotid upstrokes 2+ bilaterally. CARDIOVASCULAR: Normal S1, S2. No murmurs, gallops, or rubs. LUNGS: Bibasilar crackles. ABDOMEN: Soft, nontender, and nondistended. No hepatosplenomegaly. Positive bowel sounds. EXTREMITIES: No evidence of edema, clubbing, or cyanosis. Devyn Mina MD February 19, 2020 18:51
--- NOTE | 2020-02-21 13:20 | Discharge Summary ---
Discharge Summary Discharge Summary _ DATE OF ADMISSION: 02/11/2020 DATE OF DISCHARGE: 02/19/2020 DISCHARGED BY: Dr. Carranza REASON FOR ADMISSION: 49 years old male with no stated past medical history , presented to emergency department with complaint of shortness of breath. Patient reported being sick for the last 2 days with nonproductive cough. Shortness of breath started about 2 hours prior to presentation to ED. Patient reported shortness of breath , worse with inspiration. Patient denied fevers, but reported chills. Patient denied wheezing and hemoptysis. No chest pain. Patient reported that his brother had similar symptoms, but not as bad. Upon presentation patient was hypoxic 81% on the room air, tachycardic with heart rate 140, respiratory rate was 22 , no fevers. Patient was placed on supplemental oxygen and pulse oximetry improved. Laboratory work-up revealed no leukocytosis, stable hemoglobin and hematocrit, evidence of lymphopenia with lymphocyte percentage 15.9. Glucose 253. Stable renal parameters. Elevated ferritin 857 , LDH 264, CRP 8.9. Elevated LFT : AST 60, ALT 79, total bilirubin 1.3, direct bilirubin 0.4. Troponin negative, pro BNP 88. EKG revealed sinus tachycardia, no acute ischemic changes. Urinalysis revealed +3 protein ,+4 glucose, +4 ketones , and coarse granular casts. Hemoglobin A1c above 16. Chest x-ray demonstrated right lung base opacity, possible pneumonia versus atelectasis. In emergency department patient received ceftriaxone and azithromycin and 1 dose of Plaquenil. Patient was swabbed for COVID-19. Patient subsequently admitted to medical surgical floor isolation room for further management. CONSULTANTS: retail event assistant Dr. Mina pulmonary [facility] COURSE: Patient admitted to medical surgical floor to isolation room. Patient completed Rocephin and azithromycin. Blood cultures were negative. Influenza swab was negative. SARS-CoV-2 by PCR on 02/09 and repeated on 02/15 were both positive . Patient remained in isolation. Supplemental oxygen provided and titrated to keep saturation above 90%. Prior to discharge pulse oximetry was stable on room air. MDI with albuterol provided as needed. Patient was followed-up with chest x-ray. Last chest x-ray still revealed bibasilar infiltrates. DVT prophylaxis provided. Echocardiogram revealed preserved ejection fraction of 60% and right ventricular systolic pressure of 23. Inflammatory markers were monitored and trended. IL-6 noted to be 50. Repeated CRP from highest 11.3 went down to 3.8. LDH remained without change. Blood sugar was managed with long-acting Levemir and resistant sliding scale of insulin. Dose of Levemir was increased. Hemoglobin A1c repeated , -9.2. Patient was provided with diabetic diet. Diabetic teaching instituted . TSH was within normal limits. LFTs were trending. Hepatitis panel was negative. GI prophylaxis provided. Supportive care provided. Patient clinically improved : no fevers, pulse oximetry was stable on room air. Patient lives alone at home. Patient was stable for discharge home , given his clinical improvement ( was in the hospital more than 7 days , no fever for more than 72 hours without us of antipyretic). Patient to continue self isolation at home for additional week. FINAL DIAGNOSES: Acute hypoxemic respiratory failure/initial- resolved Confirmed COVID-19 infection Pneumonia due to COVID-19 infection New onset of diabetes mellitus with hyperglycemia Sinus tachycardia -resolved Transaminitis DISCHARGE MEDICATIONS: See Medication Reconciliation list. DISCHARGE INSTRUCTIONS: Patient was discharged home. Patient was instructed to be isolated for additional week. Rakel Jerry NP February 21, 2020 13:20
== END 2020-02-19 14:39 | disposition home or self-care (01) | DRG 177 ==
LOC: EDBD 22:16 → EMR 22:35 → EDBEDREQSVC 23:24 → EDBEDREQ 23:27 → 4E 02-11 00:10 → EDBEDREQ 02-11 18:43 → 4E 02-14 10:14
DX: U07.1 COVID-19 (principal); J96.01 Acute respiratory failure with hypoxia; J12.89 Other viral pneumonia; E87.1 Hypo-osmolality and hyponatremia; N39.0 Urinary tract infection, site not specified; E11.65 Type 2 diabetes mellitus with hyperglycemia; R00.0 Tachycardia, unspecified; R74.0 Nonspecific elevation of levels of transaminase and lactic acid dehydrogenase [LDH]
CPT/HCPCS: 36415; 71045; 80053; 81003; 82248; 82728; 82962; 83036; 83520; 83605; 83615; 83880; 84443; 84484; 85007; 85025; 85379; 85610; 85651; 85730; 86140; 86705; 86709; 86710; 86803; 87040; 87340; 87635; 93005; 93306; 96361; 96365; 96368; 96372; 99291; J1815; J7030; S5561